=== PATIENT | female | born 1945 | race Hispanic/Latino ===

== ENCOUNTER 2024-06-01 03:38 | Emergency (ER) | payer OTHER ==
--- OUTSIDE RECORDS SUMMARY | 2024-06-01 03:45 | XMS REPORT | Continuity of Care Document ---
Author Name Unknown Address [address] [place] [address] [facility] thconnect Address [address] [facility] [address] [place] [address] Care Team Providers Care Commodities Broker Name Role Phone Francisco HUMPHREY, Navin Primary Care Physic [facility] [phone] MAXIMILIANO BURROWS Attending Clinician Unavailable MAXIMILIANO BURROWS Attending Clinician Unavailable Maximiliano Burrows MD Attending Clinician [phone] Pob, [facility] Main Attending Clinician UnavailAnna Hayden MD Attending Clinician [phone] ANNA LYONS Attending Clinician Unavailabl e Doctor Unassigned, Ethan Attending Clinician U DEEPA Burgos Attending Clinician UnavailDeepa Humphries MD Attending Clinician [phone] Pob, [facility] Main Attending Clinician Unavailabl e Unknown, Attending Attending Clinician Unavailab LOS Jolly S Attending Clinician Unavailable Simon JOVEL Los S Attending Clinician [phone] SERGEI SMITH Attending Clinician Unavail able Nurse, Adc Pob Immunization Attending Clinician Unavailable Sergei Smith DO Attending Clinician [phone] Only, Ang Db Test Attending Clinician UnavailGayle Clemens Attending Clinician [phone] GAYLE SAUER Attending Clinician Unavailable [facility] Attending Clinician Unavailable PRIYA LOVELACE Attending Clinician Unavailab QUINCY Villalobos Attending Clinician Unavaila DANISH Vasquez Attending Clinician Unavailable DANISH URRUTIA Attending Clinician Unavailable Danish Urrutia DO Attending Clinician Ajibade_O_AH Attending Clinician Unavailable Ayesha Armenta RN Attending Clinician Selma Caldwell Attending Clinician [phone] Kimmie Braun MD Attending Clinician Selma KERN Attending Clinician Unavailable JAMES ZHONG Attending Clinician Unavailable [facility]_J_AH Attending Clinician Unavailable MAXIMILIANO BURROWS Admitting Clinician Unavailable Miller_S_AH Admitting Clinician Unavailable Ajibade_O_AH Admitting Clinician Unavailable Kimmie Braun MD Admitting Clinician [phone] [facility]_J_AH Admitting Clinician Unavailable Payers Payer Name Policy Type Policy Number Effective Date Expirati on Date Source [employer] [place] PREMIUM H[place] [id number] 2019 00:00:00 [employer] [place]MEDICARE REPLACEMENT/ADVANT AGE - HMO) [id number] 2019 00:00:00 Problems Condition Name Condition Details Condition Category Status Onset Date Resolution Date Last Treatment Date Treating Clinician Comments Source Nutrition deficiency due to insufficie nt food Nutrition deficiency due to insufficie nt food Disease Active 07-11 00:00: 00 [facility] Mass of left breast, unspecifie d quadrant Mass of left breast, unspecifie d quadrant Disease Active 2022-0618 00:00: 00 [facility] Palpitatio ns Palpitatio ns Disease Active 10-09 00:00: 00 [facility] 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 Disease Active 10-09 00:00: 00 [facility] Cigarette nicotine dependence without complicati on Cigarette nicotine dependence without complicati on Disease Active 10-09 00:00: 00 [facility] Dyslipidem ia Dyslipidem ia Disease Active 10-09 00:00: 00 [facility] CAPONE (dyspnea on exertion) CAPONE (dyspnea on exertion) Disease Active 10-09 00:00: 00 [facility] Cigarette nicotine dependence without complicati on Cigarette nicotine dependence without complicati on Disease Active 10-09 00:00: 00 [facility] Tobacco dependence syndrome Tobacco Dependence Syndrome Problem Active 10-08 00:00: 00 [facility] Cigarette smoker Cigarette Smoker Problem Active 10-08 00:00: 00 [facility] COPD exacerbati on COPD exacerbati on Disease Active 10-08 00:00: 00 [facility] Seasonal allergy Seasonal Allergy Problem Active 10-02 00:00: 00 [facility] Severe protein-ca guanako malnutriti on (Gonzales: less than 60% of standard weight) Severe Protein-ca guanako Malnutriti on (Gonzales: Less than 60% of Standard Weight) Problem Active 2019-06 00:00: 00 [facility] Chronic obstructiv e lung disease Chronic Obstructiv e Lung Disease Problem Active 2019-06 00:00: 00 [facility] Atrial fibrillati on Atrial Fibrillati on Problem Active 2019-06 00:00: 00 [facility] Alcohol intake above recommende d sensible limits Alcohol Intake above Recommende d Sensible Limits Problem Active 03-07 00:00: 00 [facility] Nicotine dependence Nicotine Dependence Problem Active 03-07 00:00: 00 [facility] Hyperlipid emia Hyperlipid emia Problem Active 03-02 00:00: 00 [facility] Cirrhosis of liver Cirrhosis of Liver Problem Active 03-02 00:00: 00 [facility] Allergies, Adverse Reactions, Alerts Allergy Name Allergy Type Status Severity Reaction(s) Onset Date Inactive Date Treating Clinician Comments Source codeine Propensi ty to adverse reaction to drug Active 10-05 00:00: 00 Sandeep Lucio CODEINE DRUG INGREDI Active Hiv 3 00:00: 00 [facility] Hilda Mosquera ty to adverse reaction s Active Hives 2017-0 3-31 00:00: 00 [facility] Social History Social Habit Start Date Stop Date Quantity Comments Source History of tobacco use Cigarette Smoker [facility] to SARS-CoV-2 (event) Not sure [facility] Cigarettes smoked current (pack per day) - Reported 2024-02-16 00:00:00 2024-02-16 00:00:00 [facility] Tobacco use and exposure 2024-02-16 00:00:00 2024-02-16 00:00:00 Smokeless tobacco non-user [facility] Cigarette pack-years 2024-02-16 00:00:00 2024-02-16 00:00:00 [facility] Alcoholic beverage intake 2024-02-16 00:00:00 2024-02-16 00:00:00 Lifetime non-drinker (finding) [facility] Alcohol intake 2023-08-18 00:00:00 2023-08-18 00:00:00 Lifetime non-drinker (finding) [facility] History of Social function 2023-07-11 00:00:00 2023-07-11 00:00:00 [facility] Alcohol Comment 2023-07-11 00:00:00 2023-07-11 00:00:00 quit 2019 [facility] Sex assigned at 1945 00:00:00 1945 00:00:00 [facility] Smoking Status Start Date Stop Date Source Light Tobacco Smoker [facility] Smokes tobacco daily 2024-02-16 00:00:00 [facility] Medications Ordered Medication Name Filled Medication Name Start Date Stop Date Current Medication? Ordering Clinician Indication Dosage Frequency Signature (SIG) Comments Components Source simvastatin 40 mg tablet 2023-06 0-16 00:00: 00 Yes mg Sandeep Lucio simvastatin 40 mg tablet 01-13 00:00: 00 Yes mg Sandeep Ruma Lucio buspirone 10 mg tablet 01-13 00:00: 00 Yes mg Sandeep Lucio Advair Diskus 250 mcg-50 mcg/dose powder for inhalation 2024-0 7-17 00:00: 00 Yes mcg/dos e Sandeep Lucio simvastatin 40 mg tablet 7-12 00:00: 00 Yes mg Sandeep Lucio simvastatin 40 mg tablet 7-11 00:00: 00 Yes mg Sandeep Lucio anastrozole 1 mg tablet 6-10 00:00: 00 Yes 1mg Take 1 tablet by mouth every morning [facility] ONDANSETRON ODT 4 MG 4-09 00:00: 00 Yes 4 Sandeep Lucio TAKE ONE TABLET BY MOUTH AT 5PM AND 10PM THE NIGHT BEFOR EACH CHEMO [place] 4-09 00:00: 00 Yes 4 Sandeep Lucio AMOXICILLIN 500 MG CAPSULE 3-20 00:00: 00 Yes Sandeep Lucio anastrozole 1 mg tablet 3-12 00:00: 00 Yes mg Sandeep Lucio TAKE 1 TABLET BY MOUTH DAILY -12 00:00: 00 Yes Sandeep Lucio simvastatin 40 mg tablet 07-29 14:11: 08 Yes 40mg Take 1 tablet by mouth at bedtime. [facility] multivit with calcium,iro n,min (MULTIPLE VITAMIN, WOMENS ORAL) 07-29 14:11: 08 Yes Take by mouth. [facility] polyethylen e glycol 3350 powder 17 g 07-12 15:00: 00 Yes 17g 17 g, Oral, DAILY, First dose on 07/12/23 at 0900, Until Discontinu ed, Routine [facility] enoxaparin (LOVENOX) injection 40 mg 07-12 15:00: 00 Yes 40mg 40 mg, Subcutaneo us, DAILY, First dose on 07/12/23 at 0900, Until Discontinu ed, Routine [facility] simvastatin 40 mg tablet 07-12 13:23: 43 Yes 40mg Take 1 tablet by mouth at bedtime. [facility] multivit with calcium,iro n,min (MULTIPLE VITAMIN, WOMENS ORAL) 07-12 13:23: 43 Yes Take by mouth. [facility] atorvastati n (LIPITOR) tablet 20 mg 07-12 03:00: 00 Yes 20mg 20 mg, Oral, QHS, First dose on Fri07/11/23 at 2100, Until Discontinu ed [facility] budesonide- formoteroL (SYMBICORT) 160-4.5 mcg/actuati on inhaler 2 Puff 07-12 02:00: 00 Yes 2{puff} 2 Puff, Inhalation , BID, First dose on Fri07/11/23 at 2000, Until Discontinu ed [facility] CELECOXIB 100 MG CAPSULE 07-12 00:00: 00 Yes Sandeep Lucio TAKE 1 TABLET BY MOUTH EVERY 6 HOURS FOR UP TO 7 DAYS NEEDED FOR MODERATE PAIN OR ACUTE PAIN 07-12 00:00: 00 Yes Sandeep Lucio acetaminoph en 500 mg tablet 07-12 00:00: 00 07-27 05:59 :00 No [id number] 1000mg Take 2 tablets by mouth every 8 (eight) hours for 14 days. [facility] celecoxib (CELEBREX) 100 mg capsule 07-12 00:00: 00 07-27 05:59 :00 No [id number] 100mg Take 1 capsule by mouth in the morning and 1 capsule in the evening. Take with meals. Do all this for 14 days. [facility] traMADoL 50 mg tablet 07-12 00:00: 00 07-20 05:59 :00 No [id number] 50mg Take 1 tablet by mouth every 6 (six) hours as needed for Pain (scale 4-6) for up to 7 days. Indication s: acute pain [facility] gabapentin (NEURONTIN) capsule 300 mg 07-11 20:00: 00 Yes 300mg 300 mg, Oral, TID, First dose on Fri07/11/23 at 1400, Until Discontinu ed, LOLA [facility] acetaminoph en (TYLENOL) tablet 1,000 mg 07-11 20:00: 00 Yes 1000mg 1,000 mg, Oral, TID, First dose on Fri07/11/23 at 1400, Until Discontinu ed, Routine [facility] ondansetron (ZOFRAN (PF)) injection 4 mg 07-11 19:50: 18 Yes 4mg 4 mg, Slow IV Push, Q6HPRN, Starting on Fri07/11/23 at 1350, Until Discontinu ed, Routine, Nausea and Vomiting (N/V) [facility] morpHINE (2 mg/mL) injection 2 mg 07-11 19:50: 11 Yes 2mg 2 mg, Slow IV Push, Q2HPRN, Starting on Fri07/11/23 at 1350, Until Discontinu ed, Routine, Pain (scale 7-10), Pain unrelieved by scheduled analgesics [facility] traMADoL (ULTRAM) tablet 50 mg 07-11 19:49: 50 Yes 50mg 50 mg, Oral, Q6HPRN, Starting on Fri07/11/23 at 1349, Until Discontinu ed, Routine, Pain (scale 4-6) [facility] bupivacaine (preserv free) 0.5% (SENSORCAIN E MPF) 30 mL, NaCl 0.9% (NS) 30 mL 07-11 17:19: 00 07-11 20:03 :54 No PRN, Starting on Fri07/11/23 at 1119, Intra-op [facility] water for irrigation irrigation solution 07-11 16:56: 00 07-11 20:03 :54 No PRN, Starting on Fri07/11/23 at 1056, Until Fri07/11/23 at 1403, Routine, Intra-op [facility] Tc 99m-mono. sulfur colloid injection 1.1 millicurie 07-11 16:15: 00 07-11 16:10 :00 No [id number] 1.1mCi 1.1 millicurie , Intraderma l, ONCE, 1 dose, On Fri07/11/23 at 1015, Routine [facility] ipratropium -albuteroL (DUONEB) 0.5 mg-3 mg(2.5 mg base)/3 mL nebulizer solution 1.5 mL 07-11 15:34: 05 07-11 15:38 :00 No 1.5mL 1.5 mL, Inhalation , O.R. HOLDING ONCE, 1 dose, Starting on Fri07/11/23 at 0934, Until Fri07/11/23 at 0938, Routine, Wheezing, DSU Pre-op [facility] simvastatin 40 mg tablet 07-11 14:46: 57 Yes 40mg Take 1 tablet by mouth at bedtime. [facility] multivit with calcium,iro n,min (MULTIPLE VITAMIN, WOMENS ORAL) 07-11 14:46: 57 Yes Take by mouth. [facility] lactated ringers IV infusion 1,000 mL 07-11 14:15: 00 07-11 14:18 :00 No 1000mL at 42 mL/hr, 1,000 mL, IV Infusion, ONCE, 1 dose, On Fri07/11/23 at 0815, Routine, DSU Pre-op [facility] TAKE 1 TABLET TWICE DAILY. 07-08 00:00: 00 10-09 00:00 :00 No 500 Sandeep Lucio buspirone 10 mg tablet 07-02 00:00: 00 Yes mg Sandeep Ruma Naveed simvastatin 40 mg tablet 2022-06 11:49: 03 Yes 40mg Take 1 tablet by mouth at bedtime. [facility] multivit with calcium,iro n,min (MULTIPLE VITAMIN, WOMENS ORAL) 2022-06 11:49: 03 Yes Take by mouth. [facility] Advair Diskus 250 mcg-50 mcg/dose powder for inhalation 2022-06 00:00: 00 Yes mcg/dos e Sandeep Ruma Naveed simvastatin 40 mg tablet 2022-06 00:00: 00 Yes mg Sandeep Lucio INHALE 1 PUFF BY MOUTH TWICE DAILY 2022-06 00:00: 00 Yes Sandeep Lucio TAKE 1 TABLET BY MOUTH EVERY 6 TO 8 HOURS NEEDED FOR PAIN 2022-06 00:00: 00 Yes Sandeep Lucio TAKE ONE CAPSULE BY MOUTH THREE TIMES DAILY UNTIL FINISHED 2022-06 00:00: 00 Yes Sandeep Lucio multivit with calcium,iro n,min (MULTIPLE VITAMIN, WOMENS ORAL) 2022-06 08:09: 14 Yes Take by mouth. [facility] simvastatin 40 mg tablet 2022-06 08:08: 54 Yes 40mg Take 1 tablet by mouth at bedtime. [facility] TAKE 1 CAPSULE BY MOUTH THREE TIMES DAILY UNTIL ALL TAKEN 2022-06 00:00: 00 Yes Sandeep Lucio IBUPROFEN 800MG 2022-06 00:00: 00 Yes [id number] Sandeep Lucio TAKE 1 TABLET BY MOUTH 1 HOUR BEFORE APPOINTMENT 2022-06 00:00: 00 Yes Sandeep Lucio IBUPROFEN 800MG 2022-06 00:00: 00 Yes Sandeep Lucio AMOXICILLIN 500MG 2022-06 00:00: 00 Yes Sandeep Lucio TAKE 1 TABLET BY MOUTH 1 HOURS BEFORE APPOINTMENT 2022-06 00:00: 00 Yes Sandeep Lucio VARENICLINE 1MG 2022-06 0-09 00:00: 00 Yes Sandeep Lucio ADVAIR DISKU 250/50 INH 9- 00:00: 00 Yes Sandeep Lucio TAKE 1 TABLET DAILY. 02-26 00:00: 00 10-09 00:00 :00 No 40 Sandeep Lucio ADVAIR DISKU 250/50 INH 4-30 00:00: 00 Yes Sandeep Lucio SIMVASTATIN 40MG 4-24 00:00: 00 Yes Sandeep Lucio TAKE 1 TABLET BY MOUTH DAILY - 00:00: 00 Yes Sandeep Lucio TRELEGY 100 ELLIPTA INH 1-18 00:00: 00 Yes Sandeep Lucio ADVAIR DISKU 250/50 INH 1-17 00:00: 00 Yes Sandeep Lucio Dose Unknown 2021-06 0-21 00:00: 00 Yes Sandeep Lucio SIMVASTATIN 40MG 2021-06 0-20 00:00: 00 Yes [id number] Sandeep Lucio INHALE 1 PUFF BY MOUTH TWICE DAILY 2021-06 0-18 00:00: 00 Yes Sandeep Lucio TRELEGY 100 ELLIPTA INH 2021-06 0-04 00:00: 00 Yes Sandeep Lucio TRELEGY 100 ELLIPTA INH 9-02 00:00: 00 Yes Sandeep Lucio TRELEGY 100 ELLIPTA INH 5-23 00:00: 00 Yes Sandeep Lucio TAKE 1 TABLET BY MOUTH EVERY NIGHT AT BEDTIME 5 00:00: 00 Yes Sandeep Lucio alclomethas one 0.05 % cream 1-20 00:00: 00 07-12 00:00 :00 No [id number] Apply to area(s) 2 (two) times daily. [facility] ergocalcife rol, vitamin d2, 1,250 mcg (50,000 unit) capsule 10-17 00:00: 00 10-24 04:59 :00 No [id number] Take 1 capsule by mouth weekly for 6 days. [facility] foLIC acid 1 mg tablet 10-11 00:00: 00 11-11 04:59 :00 No [id number] 1mg Take 1 tablet by mouth daily for 30 days. [facility] multivitami n tablet 10-11 00:00: 00 11-11 04:59 :00 No [id number] 1{tbl} Take 1 tablet by mouth daily for 30 days. [facility] thiamine 100 mg tablet 10-11 00:00: 00 11-11 04:59 :00 No [id number] 100mg Take 1 tablet by mouth daily for 30 days. [facility] nicotine 21 mg/24 hr patch 10-11 00:00: 00 11-09 04:59 :00 No [id number] 1{patch } Apply 1 Patch to area(s) every 24 (twenty-fo ur) hours for 28 days. [facility] predniSONE 20 mg tablet 10-11 00:00: 00 10-17 04:59 :00 No [id number] 40mg Take 2 tablets by mouth daily for 5 days. [facility] simvastatin 40 mg tablet 10-10 19:01: 00 Yes 40mg Take 40 mg by mouth at bedtime. [facility] simvastatin 40 mg tablet 10-10 14:01: 00 Yes 40mg Take 40 mg by mouth at bedtime. [facility] ergocalcife rol (vitamin d2) (CALCIFEROL ) capsule 50,000 Units 10-10 14:00: 00 Yes [id number] 50,000 Units, Oral, QWEEKLY, First dose on Fri10/10/20 at 0900, Until Discontinu ed, Routine [facility] KCL (KLOR-CON M20) tablet 40 mEq 10-10 14:00: 00 Yes 40meq 40 mEq, Oral, DAILY, First dose (after last reorder) on Fri10/10/20 at 0900, Until Discontinu ed, LOLA [facility] oxazepam (SERAX) capsule 15 mg 10-10 11:00: 00 10-11 10:59 :00 No 15mg [Order 1 Start] Name: oxazepam (SERAX) capsule 15 mg Signed Summary: 15 mg, Oral, Q8H, 3 doses, First dose on Fri10/10/20 at 0600, Last dose on Fri10/10/20 at 2200, Routine [Order 1 End] [Order 2 Start] Name: oxazepam (SERAX) capsule 15 mg Signed Summary: 15 mg, Oral, Q12H, 2 doses, First dose on Fri10/11/20 at 0800, Last dose on Fri10/11/20 at 2000, Routine [Order 2 End] [facility] simvastatin (ZOCOR) tablet 40 mg 10-10 02:00: 00 Yes 40mg 40 mg, Oral, QHS, First dose on Fri10/09/20 at 2100, Until Discontinu ed, Routine [facility] azithromyci n 250 mg tablet 10-10 00:00: 00 10-16 04:59 :00 No [id number] 250mg Take 1 tablet by mouth daily for 5 days. Take 500 mg day 1, then 250 mg days 2 to 5. [facility] foLIC acid (FOLATE) tablet 1 mg 10-09 14:00: 00 Yes 1mg 1 mg, Oral, DAILY, First dose on Fri10/09/20 at 0900, Until Discontinu ed, Routine [facility] enoxaparin (LOVENOX) injection 30 mg 10-09 14:00: 00 Yes 30mg 30 mg, Subcutaneo us, DAILY, First dose on Fri10/09/20 at 0900, Until Discontinu ed, Routine [facility] predniSONE (DELTASONE) tablet 50 mg 10-09 14:00: 00 Yes 50mg 50 mg, Oral, DAILY, First dose on Fri10/09/20 at 0900, Until Discontinu ed, Routine [facility] docusate (COLACE) capsule 100 mg 10-09 13:00: 00 Yes 100mg 100 mg, Oral, BID, First dose on Fri10/09/20 at 0800, Until Discontinu ed, Routine [facility] azithromyci n (ZITHROMAX) 500 mg in NaCl 0.9% (NS) 250 mL VIAL-MATE IV piggyback 10-09 10:00: 00 10-14 09:59 :00 No 500mg 500 mg, IV Piggyback, Q24H ABX, 5 doses, First dose on Fri10/09/20 at 0500, Last dose on Fri10/13/20 at 0500, 250 mL
Reas on for Anti-Infec tive: Empiric Therapy for Suspected Infection< br>Empi analy Therapy Site: Respirator y
Durat ion of therapy: 7 days [facility] nicotine (NICODERM) 21 mg/24 hr patch 1 Patch 10-09 09:15: 00 Yes 1{patch } 1 Patch, Topical, Administer over 24 Hours, Q24H, First dose on Fri10/09/20 at 0415, Until Discontinu ed, Routine [facility] KCL (KLOR-CON M20) tablet 40 mEq 10-09 09:00: 00 10-09 10:52 :00 No 40meq 40 mEq, Oral, ONCE, 1 dose, Fri10/09/20 at 0400, LOLA [facility] magnesium oxide (MAG-OX 400) tablet 400 mg 10-09 08:15: 00 Yes 400mg 400 mg, Oral, BID, First dose on Fri10/09/20 at 0315, Until Discontinu ed, Routine [facility] multivitami n tablet 1 tablet 10-09 08:15: 00 Yes 1{tbl} 1 tablet, Oral, DAILY, First dose on Fri10/09/20 at 0315, Until Discontinu ed, Routine [facility] thiamine (VITAMIN B1) tablet 100 mg 10-09 08:15: 00 Yes 100mg 100 mg, Oral, DAILY, First dose on Fri10/09/20 at 0315, Until Discontinu ed, Routine [facility] budesonide (PULMICORT RESPULE) nebulizer solution 0.5 mg 10-09 08:15: 00 Yes .5mg 0.5 mg, Inhalation , BID, First dose on Fri10/09/20 at 0315, Until Discontinu ed, Routine
direct support staff member approving Restricted medication : KIMMIE BRAUN [facility] ipratropium -albuteroL (DUONEB) 0.5 mg-3 mg(2.5 mg base)/3 mL nebulizer solution 3 mL 10-09 08:15: 00 Yes 3mL 3 mL, Inhalation , QID, First dose on Fri10/09/20 at 0315, Until Discontinu ed, Routine [facility] oxazepam (SERAX) capsule 15 mg 10-09 08:03: 20 Yes 15mg 15 mg, Oral, Q4HPRN, Starting Fri10/09/20 at 0303, Until Discontinu ed, Routine, Only while awake for DBP equal to or greater than 100, HR equal to or greater than 100. [facility] ondansetron (ZOFRAN (PF)) injection 4 mg 10-09 08:03: 01 Yes 4mg 4 mg, Slow IV Push, Q6HPRN, Starting 10/09/20 at 0303, Until Discontinu ed, Routine, Nausea and Vomiting (N/V) [facility] methylpredn isolone sod succ (SOLU-MEDRO L) injection 125 mg 10-09 06:00: 00 10-09 05:31 :00 No 125mg 125 mg, Slow IV Push, ONCE, 1 dose, 10/09/20 at 0100, STAT [facility] iohexol (OMNIPAQUE 350 BULK-100 mL) injection 100 mL 10-09 04:30: 00 10-09 04:12 :00 No [id number] 100mL 100 mL, Intravenou s, ONCE, 1 dose, 10/08/20 at 2330, Routine [facility] cyclobenzap rine 5 mg tablet 09-27 00:00: 00 10-09 00:00 :00 No 5mg Take 1 tablet by mouth 3 (three) times daily. [facility] naproxen 250 mg tablet 09-27 00:00: 00 10-09 00:00 :00 No 250mg Take 1 tablet by mouth 2 (two) times daily with meals. [facility] thiamine HCl (vitamin B1) 100 mg tablet Take 1 mg every day by oral route with meals for 30 days. thiamine HCl (vitamin B1) 100 mg tablet Take 1 mg every day by oral route with meals for 30 days. No 1mg Q1D thiamine HCl (vitamin B1) 100 mg tablet Take 1 mg every day by oral route with meals for 30 days. [facility] Immun[facility] Ordered Immunization Name Filled Immunization Name Date Status Comments Source influenza, seasonal vaccine, quadrivalent, adjuvanted, .5mL dose, preservative-free influenza, seasonal vaccine, quadrivalent, adjuvanted, .5mL dose, preservative-free 2024-02-23 00:00:00 Completed Sandeep Lucio Prevnar 20 Prevnar 20 2024-02-23 00:00:00 Scarlett Lucio Influenza, High-Dose, Trivalent, PF (FLUZONE) 2023-06-30 00:00:00 Completed [facility] Influenza, High-Dose, Trivalent, PF (FLUZONE) 2023-06-30 00:00:00 Completed [facility] (Old) Pfizer-BioNTech COVID-19 Vaccine Bivalent Booster 12 years and older (KOLB CAP) (Khoi-sucrose formulation) (Old) Pfizer-BioNTech COVID-19 Vaccine Bivalent Booster 12 years and older (KOLB CAP) (Khoi-sucrose formulation) 2022-04-18 00:00:00 Completed Sandeep Lucio Moderna COVID-19 Vaccine Moderna COVID-19 Vaccine 2021-03-26 00:00:00 Completed Sandeep Ruma Lucio SARS-COV-2 COVID-19 MODERNA VACCINE 2021-03-26 00:00:00 Completed [facility] SARS-COV-2 COVID-19 MODERNA VACCINE 2021-03-26 00:00:00 Completed [facility] SARS-COV-2 COVID-19 MODERNA 12+ YRS VACCINE 2021-03-26 00:00:00 Completed [facility] SARS-COV-2 COVID-19 MODERNA 12+ YRS VACCINE 2021-03-26 00:00:00 Completed [facility] Moderna COVID-19 Vaccine Moderna COVID-19 Vaccine 2020-09-02 00:00:00 Completed Sandeep Lucio SARS-COV-2 COVID-19 MODERNA VACCINE 2020-09-02 00:00:00 Completed [facility] SARS-COV-2 COVID-19 MODERNA VACCINE 2020-09-02 00:00:00 Completed [facility] SARS-COV-2 COVID-19 MODERNA VACCINE 2020-09-02 00:00:00 Completed [facility] SARS-COV-2 COVID-19 MODERNA VACCINE 2020-09-02 00:00:00 Completed [facility] SARS-COV-2 COVID-19 MODERNA VACCINE 2020-09-02 00:00:00 Completed [facility] SARS-COV-2 COVID-19 MODERNA VACCINE 2020-09-02 00:00:00 Completed [facility] SARS-COV-2 COVID-19 MODERNA 12+ YRS VACCINE 2020-09-02 00:00:00 Completed [facility] SARS-COV-2 COVID-19 MODERNA VACCINE 2020-09-02 00:00:00 Completed [facility] SARS-COV-2 COVID-19 MODERNA 12+ YRS VACCINE 2020-09-02 00:00:00 Completed [facility] SARS-COV-2 (COVID-19) vaccine, UNSPECIFIED SARS-COV-2 (COVID-19) vaccine, UNSPECIFIED 2020-08-28 00:00:00 Completed [facility] Moderna COVID-19 Vaccine Moderna COVID-19 Vaccine 2020-08-05 00:00:00 Completed Sandeep Hendrix [facility] SARS-COV-2 COVID-19 MODERNA VACCINE 2020-08-05 00:00:00 Completed [facility] SARS-COV-2 COVID-19 MODERNA VACCINE 2020-08-05 00:00:00 Completed [facility] SARS-COV-2 COVID-19 MODERNA VACCINE 2020-08-05 00:00:00 Completed [facility] SARS-COV-2 COVID-19 MODERNA VACCINE 2020-08-05 00:00:00 Completed [facility] SARS-COV-2 COVID-19 MODERNA VACCINE 2020-08-05 00:00:00 Completed [facility] SARS-COV-2 COVID-19 MODERNA VACCINE 2020-08-05 00:00:00 Completed [facility] SARS-COV-2 COVID-19 MODERNA 12+ YRS VACCINE 2020-08-05 00:00:00 Completed [facility] SARS-COV-2 COVID-19 MODERNA VACCINE 2020-08-05 00:00:00 Completed [facility] SARS-COV-2 COVID-19 MODERNA 12+ YRS VACCINE 2020-08-05 00:00:00 Completed [facility] pneumococcal polysaccharide PPV23 pneumococcal polysaccharide PPV23 2020-04-18 00:00:00 Completed [facility] influenza, injectable, quadrivalent influenza, injectable, quadrivalent 2020-04-18 00:00:00 Completed [facility] influenza, injectable, quadrivalent influenza, injectable, quadrivalent 2017-06-30 00:00:00 Completed [facility] SARS-COV-2 COVID-19 MODERNA 12+ YRS VACCINE Unknown Completed [facility] SARS-COV-2 COVID-19 MODERNA 12+ YRS VACCINE Unknown Completed [facility] SARS-COV-2 COVID-19 MODERNA 12+ YRS VACCINE Unknown Completed [facility] SARS-COV-2 COVID-19 MODERNA 12+ YRS VACCINE Unknown Completed [facility] SARS-COV-2 COVID-19 MODERNA 12+ YRS VACCINE Unknown Completed [facility] SARS-COV-2 COVID-19 MODERNA 12+ YRS VACCINE Unknown Completed [facility] SARS-COV-2 COVID-19 MODERNA 12+ YRS VACCINE Unknown Completed [facility] SARS-COV-2 COVID-19 MODERNA 12+ YRS VACCINE Unknown Completed [facility] SARS-COV-2 COVID-19 MODERNA 12+ YRS VACCINE Unknown Completed [facility] SARS-COV-2 COVID-19 MODERNA 12+ YRS VACCINE Unknown Completed [facility] SARS-COV-2 COVID-19 MODERNA 12+ YRS VACCINE Unknown Completed [facility] SARS-COV-2 COVID-19 MODERNA 12+ YRS VACCINE Unknown Completed [facility] SARS-COV-2 COVID-19 MODERNA 12+ YRS VACCINE Unknown Completed [facility] SARS-COV-2 COVID-19 MODERNA 12+ YRS VACCINE Unknown Completed [facility] SARS-COV-2 COVID-19 MODERNA 12+ YRS VACCINE Unknown Completed [facility] SARS-COV-2 COVID-19 MODERNA 12+ YRS VACCINE Unknown Completed [facility] SARS-COV-2 COVID-19 MODERNA 12+ YRS VACCINE Unknown Completed [facility] Influenza High Dose Unknown Completed [facility] SARS-COV-2 COVID-19 MODERNA 12+ YRS VACCINE Unknown Completed [facility] Influenza High Dose Unknown Completed [facility] SARS-COV-2 COVID-19 MODERNA 12+ YRS VACCINE Unknown Completed [facility] Influenza High Dose Unknown Completed [facility] SARS-COV-2 COVID-19 MODERNA 12+ YRS VACCINE Unknown Completed [facility] Influenza High Dose Unknown Completed [facility] Influenza High Dose Unknown Completed [facility] SARS-COV-2 COVID-19 MODERNA 12+ YRS VACCINE Unknown Completed [facility] SARS-COV-2 COVID-19 MODERNA 12+ YRS VACCINE Unknown Completed [facility] Influenza High Dose Unknown Completed [facility] Influenza High Dose Unknown Completed [facility] SARS-COV-2 COVID-19 MODERNA 12+ YRS VACCINE Unknown Completed [facility] SARS-COV-2 COVID-19 MODERNA 12+ YRS VACCINE Unknown Completed [facility] Influenza High Dose Unknown Completed [facility] SARS-COV-2 COVID-19 MODERNA 12+ YRS VACCINE Unknown Completed [facility] Influenza High Dose Unknown Completed [facility] SARS-COV-2 COVID-19 MODERNA 12+ YRS VACCINE Unknown Completed [facility] Influenza High Dose Unknown Completed [facility] SARS-COV-2 COVID-19 MODERNA 12+ YRS VACCINE Unknown Completed [facility] Influenza High Dose Unknown Completed [facility] Vital Signs Vital Name Observation Time Observation Value Comments S ource Systolic blood pressure 2024-02-16 16:01:00 146 mm[Hg] [facility] Diastolic blood pressure 2024-02-16 16:01:00 64 mm[Hg] [facility] Heart rate 2024-02-16 16:00:00 75 /min [facility] Body temperature 2024-02-16 16:00:00 36.72 Juanita [facility] Body height 2024-02-16 16:00:00 149.9 cm [facility] Body weight 2024-02-16 16:00:00 34.473 kg [facility] BMI 2024-02-16 16:00:00 15.35 kg/m2 [facility] Oxygen saturation in Arterial blood by Pulse oximetry 2024-02-16 16:00:00 95 /min [facility] Systolic blood pressure 2023-08-18 17:36:00 149 mm[Hg] [facility] Diastolic blood pressure 2023-08-18 17:36:00 77 mm[Hg] [facility] Heart rate 2023-08-18 17:35:00 87 /min [facility] Respiratory rate 2023-08-18 17:35:00 16 /min [facility] Body height 2023-08-18 17:35:00 149.9 cm [facility] 2023-08-18 17:35:00 33.294 kg [facility] BMI 2023-08-18 17:35:00 14.83 kg/m2 [facility] Oxygen saturation in Arterial blood by Pulse oximetry 2023-08-18 17:35:00 96 /min [facility] Systolic blood pressure 2023-08-12 21:51:00 126 mm[Hg] [facility] Diastolic blood pressure 2023-08-12 21:51:00 59 mm[Hg] [facility] Heart rate 2023-08-12 21:51:00 96 /min [facility] Respiratory rate 2023-08-12 21:51:00 18 /min [facility] Body height 2023-08-12 21:51:00 149.9 cm [facility] Body weight 2023-08-12 21:51:00 33.113 kg [facility] BMI 2023-08-12 21:51:00 14.74 kg/m2 [facility] Oxygen saturation in Arterial blood by Pulse oximetry 2023-08-12 21:51:00 97 /min [facility] Systolic blood pressure 2023-07-29 20:15:00 135 mm[Hg] [facility] Diastolic blood pressure 2023-07-29 20:15:00 72 mm[Hg] [facility] Heart rate 2023-07-29 20:15:00 96 /min [facility] Oxygen saturation in Arterial blood by Pulse oximetry 2023-07-29 20:15:00 96 /min [facility] Respiratory rate 2023-07-29 20:14:00 16 /min [facility] Body height 2023-07-29 20:14:00 149.9 cm [facility] Body weight 2023-07-29 20:14:00 33.203 kg [facility] BMI 2023-07-29 20:14:00 14.78 kg/m2 [facility] Systolic blood pressure 2023-07-12 18:10:00 126 mm[Hg] [facility] Diastolic blood pressure 2023-07-12 18:10:00 55 mm[Hg] [facility] Heart rate 2023-07-12 18:10:00 76 /min [facility] Body temperature 2023-07-12 18:10:00 36.5 Juanita [facility] Respiratory rate 2023-07-12 18:10:00 18 /min [facility] Oxygen saturation in Arterial blood by Pulse oximetry 2023-07-12 18:10:00 93 /min [facility] Body weight 2023-07-12 09:59:00 35.97 kg [facility] BMI 2023-07-12 09:59:00 16.02 kg/m2 [facility] Body height 2023-07-11 20:48:00 149.9 cm [facility] Body height 2023-07-11 15:16:00 149.9 cm [facility] Body weight 2023-07-11 15:16:00 33.566 kg [facility] BMI 2023-07-11 15:16:00 16.02 kg/m2 [facility] Systolic blood pressure 2023-07-11 14:12:00 148 mm[Hg] [facility] Diastolic blood pressure 2023-07-11 14:12:00 56 mm[Hg] [facility] Heart rate 2023-07-11 14:12:00 97 /min [facility] Body temperature 2023-07-11 14:12:00 36.22 Juanita [facility] Respiratory rate 2023-07-11 14:12:00 19 /min [facility] Oxygen saturation in Arterial blood by Pulse oximetry 2023-07-11 14:12:00 98 /min [facility] Systolic blood pressure 2023-06-16 16:56:00 157 mm[Hg] [facility] Diastolic blood pressure 2023-06-16 16:56:00 79 mm[Hg] [facility] Heart rate 2023-06-16 16:56:00 97 /min [facility] Body temperature 2023-06-16 16:56:00 36.11 Juanita [facility] Respiratory rate 2023-06-16 16:56:00 18 /min [facility] Body height 2023-06-16 16:56:00 149.9 cm [facility] Body weight 2023-06-16 16:56:00 35.381 kg [facility] BMI 2023-06-16 16:56:00 15.75 kg/m2 [facility] Oxygen saturation in Arterial blood by Pulse oximetry 2023-06-16 16:56:00 95 /min [facility] Systolic blood pressure 2023-06-02 14:10:00 157 mm[Hg] [facility] Diastolic blood pressure 2023-06-02 14:10:00 76 mm[Hg] [facility] Heart rate 2023-06-02 14:10:00 79 /min [facility] Oxygen saturation in Arterial blood by Pulse oximetry 2023-06-02 14:10:00 95 /min [facility] Body temperature 2023-06-02 14:08:00 36.5 Juanita [facility] Respiratory rate 2023-06-02 14:08:00 18 /min [facility] Body height 2023-06-02 14:08:00 149.9 cm [facility] Body weight 2023-06-02 14:08:00 35.562 kg [facility] BMI 2023-06-02 14:08:00 15.83 kg/m2 [facility] Systolic blood pressure 2021-07-19 06:29:00 154 mm[Hg] [facility] Diastolic blood pressure 2021-07-19 06:29:00 65 mm[Hg] [facility] Heart rate 2021-07-19 06:29:00 78 /min [facility] Body temperature 2021-07-19 06:29:00 36.61 Juanita [facility] Respiratory rate 2021-07-19 06:29:00 18 /min [facility] Body height 2021-07-19 06:29:00 149.9 cm [facility] Body weight 2021-07-19 06:29:00 39.009 kg [facility] BMI 2021-07-19 06:29:00 17.37 kg/m2 [facility] Oxygen saturation in Arterial blood by Pulse oximetry 2021-07-19 06:29:00 98 /min [facility] Systolic blood pressure 2020-10-12 18:33:00 147 mm[Hg] [facility] Diastolic blood pressure 2020-10-12 18:33:00 74 mm[Hg] [facility] Heart rate 2020-10-12 18:32:00 95 /min [facility] Respiratory rate 2020-10-12 18:32:00 19 /min [facility] Body height 2020-10-12 18:32:00 144.8 cm [facility] Body weight 2020-10-12 18:32:00 32.205 kg [facility] BMI 2020-10-12 18:32:00 15.36 kg/m2 [facility] Oxygen saturation in Arterial blood by Pulse oximetry 2020-10-12 18:32:00 93 /min [facility] Respiratory rate 2020-10-10 16:25:00 18 /min [facility] Oxygen saturation in Arterial blood by Pulse oximetry 2020-10-10 16:25:00 97 /min [facility] Heart rate 2020-10-10 16:19:00 84 /min [facility] Systolic blood pressure 2020-10-10 16:13:00 105 mm[Hg] [facility] Diastolic blood pressure 2020-10-10 16:13:00 56 mm[Hg] [facility] Body temperature 2020-10-10 16:13:00 37.11 Juanita [facility] Body weight 2020-10-10 08:16:00 33.475 [facility] 2020-10-10 08:16:00 15.97 kg/m2 [facility] Body height 2020-10-09 05:46:00 144.8 cm [facility] Height 2020-10-02 00:00:00 59 [in_i] [facility] BMI (Body Mass Index) 2020-10-02 00:00:00 15.1 kg/m2 [facility] Body Weight 2020-10-02 00:00:00 75 [lb_av] [facility] Height 2020-07-06 00:00:00 59 [in_i] [facility] BMI (Body Mass Index) 2020-07-06 00:00:00 14.9 kg/m2 [facility] Body Weight 2020-07-06 00:00:00 74 [lb_av] [facility] Height 2020-05-08 00:00:00 59 [in_i] [facility] BMI (Body Mass Index) 2020-05-08 00:00:00 14.5 kg/m2 [facility] Body Weight 2020-05-08 00:00:00 72 [lb_av] [facility] Height 2020-03-02 00:00:00 59 [in_i] [facility] BMI (Body Mass Index) 2020-03-02 00:00:00 14.5 kg/m2 [facility] Body Weight 2020-03-02 00:00:00 72 [lb_av] [facility] BP Systolic 2024-04-14 13:39:00 130 mm[Hg] Step hen [facility] BP Diastolic 2024-04-14 13:39:00 56 mm[Hg] Evan phen F [facility] Weight Measured 2024-04-14 13:39:00 81.80 pounds Sandeep F [facility] Height Measured 2024-04-14 13:39:00 57.48 inches Sandeep F [facility] Body Temperature 2024-04-14 13:39:00 Sandeep F [facility] Heart Rate 2024-04-14 13:39:00 90.00 /min Raquel en [facility] Respiratory Rate 2024-04-14 13:39:00 Sandeep F [facility] BP Systolic 2024-02-23 14:41:00 133 mm[Hg] Step [facility] BP Diastolic 2024-02-23 14:41:00 62 mm[Hg] Evan phen F [facility] Weight Measured 2024-02-23 14:41:00 78.00 pounds Sandeep F [facility] Height Measured 2024-02-23 14:41:00 57.48 inches Sandeep F [facility] Body Temperature 2024-02-23 14:41:00 97.60 degrees Sandeep F [facility] Heart Rate 2024-02-23 14:41:00 90.00 /min Raquel en [facility] Respiratory Rate 2024-02-23 14:41:00 Sandeep F N[facility] BP Systolic 2024-01-14 11:06:00 151 mm[Hg] Step [facility] BP Diastolic 2024-01-14 11:06:00 69 mm[Hg] Evan phen [facility] Weight Measured 2024-01-14 11:06:00 73.80 pounds Sandeep F [facility] Height Measured 2024-01-14 11:06:00 57.48 inches Sandeep F [facility] Body Temperature 2024-01-14 11:06:00 98.10 degrees Sandeep F [facility] Heart Rate 2024-01-14 11:06:00 92.00 /min Raquel en [facility] Respiratory Rate 2024-01-14 11:06:00 Sandeep F Nave[facility] BP Systolic 2023-10-06 15:32:00 147 mm[Hg] Step [facility] BP Diastolic 2023-10-06 15:32:00 66 mm[Hg] Evan phen [facility] Weight Measured 2023-10-06 15:32:00 71.60 pounds Sandeep F [facility] Height Measured 2023-10-06 15:32:00 57.48 inches Sandeep F [facility] Body Temperature 2023-10-06 15:32:00 97.20 degrees Sandeep F [facility] Heart Rate 2023-10-06 15:32:00 71.00 /min Raquel en F [facility] Respiratory Rate 2023-10-06 15:32:00 Sandeep F Nave[facility] BP Systolic 2023-08-21 13:28:00 167 mm[Hg] Step [facility] BP Diastolic 2023-08-21 13:28:00 73 mm[Hg] Evan phen [facility] Weight Measured 2023-08-21 13:28:00 72.80 pounds Sandeep F [facility] Height Measured 2023-08-21 13:28:00 57.48 inches Sandeep F [facility] Body Temperature 2023-08-21 13:28:00 98.10 degrees Sandeep F N[facility] Heart Rate 2023-08-21 13:28:00 87.00 /min Raquel en F [facility] Respiratory Rate 2023-08-21 13:28:00 25.00 /min Sandeep F [facility] BP Systolic 2023-07-02 13:15:00 133 mm[Hg] Step [facility] BP Diastolic 2023-07-02 13:15:00 74 mm[Hg] Evan phen [facility] Weight Measured 2023-07-02 13:15:00 77.80 pounds Sandeep F [facility] Height Measured 2023-07-02 13:15:00 67.48 inches Asndeep F [facility] Body Temperature 2023-07-02 13:15:00 97.80 degrees Sandeep F [facility] Heart Rate 2023-07-02 13:15:00 91.00 /min Raquel en F [facility] Respiratory Rate 2023-07-02 13:15:00 Sandeep F N[facility] BP Systolic 2023-06-10 15:59:00 132 mm[Hg] Step [facility] BP Diastolic 2023-06-10 15:59:00 75 mm[Hg] Evan phen [facility] Weight Measured 2023-06-10 15:59:00 78.00 pounds Sandeep F [facility] Height Measured 2023-06-10 15:59:00 57.48 inches Sandeep F [facility] Body Temperature 2023-06-10 15:59:00 97.30 degrees Sandeep F [facility] Heart Rate 2023-06-10 15:59:00 84.00 /min Raquel en F [facility] Respiratory Rate 2023-06-10 15:59:00 Sandeep F Nave[facility] BP Systolic 2023-04-23 13:33:00 108 mm[Hg] Step [facility] BP Diastolic 2023-04-23 13:33:00 66 mm[Hg] Evan phen [facility] Weight Measured 2023-04-23 13:33:00 78.20 pounds Sandeep F [facility] Height Measured 2023-04-23 13:33:00 57.48 inches Sandeep F [facility] Body Temperature 2023-04-23 13:33:00 97.90 degrees Sandeep F [facility] Heart Rate 2023-04-23 13:33:00 92.00 /min Raquel en F [facility] Respiratory Rate 2023-04-23 13:33:00 Sandeep F Nave[facility] BP Systolic 2023-04-16 13:58:00 137 mm[Hg] Step [facility] BP Diastolic 2023-04-16 13:58:00 74 mm[Hg] Evan phen [facility] Weight Measured 2023-04-16 13:58:00 79.20 pounds Sandeep F [facility] Height Measured 2023-04-16 13:58:00 57.48 inches Sandeep F [facility] Body Temperature 2023-04-16 13:58:00 97.60 degrees Sandeep F [facility] Heart Rate 2023-04-16 13:58:00 89.00 /min Raquel en [facility] Respiratory Rate 2023-04-16 13:58:00 Sandeep F Naveed BP Systolic 2023-03-04 08:18:00 134 mm[Hg] Step [facility] BP Diastolic 2023-03-04 08:18:00 71 mm[Hg] Evan phen [facility] Weight Measured 2023-03-04 08:18:00 94.40 pounds Sandeep F [facility] Height Measured 2023-03-04 08:18:00 57.48 inches Sandeep F [facility] Body Temperature 2023-03-04 08:18:00 97.40 degrees Sandeep F [facility] Heart Rate 2023-03-04 08:18:00 86.00 /min Raquel en F [facility] Respiratory Rate 2023-03-04 08:18:00 Sandeep F Naveed BP Systolic 2023-02-26 13:31:00 153 mm[Hg] Step hen [facility] BP Diastolic 2023-02-26 13:31:00 63 mm[Hg] Evan phen [facility] Weight Measured 2023-02-26 13:31:00 80.60 pounds Sandeep F [facility] Height Measured 2023-02-26 13:31:00 57.48 inches Sandeep F [facility] Body Temperature 2023-02-26 13:31:00 98.30 degrees Sandeep F [facility] Heart Rate 2023-02-26 13:31:00 80.00 /min Raquel en F [facility] Respiratory Rate 2023-02-26 13:31:00 Sandeep F Naveed BP Systolic 2022-10-21 14:10:00 154 mm[Hg] Step hen [facility] BP Diastolic 2022-10-21 14:10:00 74 mm[Hg] Evan phen F [facility] Weight Measured 2022-10-21 14:10:00 80.40 pounds Sandeep Lucio Height Measured 2022-10-21 14:10:00 57.48 inches Sandeep Lucio Body Temperature 2022-10-21 14:10:00 98.10 degrees Sandeep Lucio Heart Rate 2022-10-21 14:10:00 89.00 /min Raquel en Ruma Lucio Respiratory Rate 2022-10-21 14:10:00 Sandeep Lucio BP Systolic 2022-07-22 13:30:00 134 mm[Hg] Step hen Ruma Lucio BP Diastolic 2022-07-22 13:30:00 72 mm[Hg] Evan Lucio Weight Measured 2022-07-22 13:30:00 81.20 pounds Sandeep Lucio Height Measured 2022-07-22 13:30:00 57.48 inches Sandeep Lucio Body Temperature 2022-07-22 13:30:00 98.20 degrees Sandeep Lucio Heart Rate 2022-07-22 13:30:00 92.00 /min Raquel en Ruma Lucio Respiratory Rate 2022-07-22 13:30:00 Sandeep Lucio Procedures Procedure Date / Time Performed Performing Clinician Source BI GLENN GUIDED CORE BREAST BIOPSY RIGHT 2024-05-07 22:09:00 Maximiliano Burrows [facility] BI ULTRASOUND BREAST COMPLETE RIGHT 2024-04-14 15:58:07 Navin Singh [facility] BI DIAGNOSTIC TOMOSYNTHESIS RIGHT 2024-04-14 15:00:00 Maximiliano Burrows [facility] EXTERNAL PROVIDER RECORDS 2023-09-19 05:01:00 Doctor Unassigned, Ethan [facility] AUTHORIZATION FOR RELEASE OF PHI 2023-08-21 06:01:00 Doctor Unassigned, Ethan [facility] FL TIME OR (NON-REPORTABLE) 2023-07-11 18:15:00 Maximiliano Burrows [facility] FL TIME OR (NON-REPORTABLE) 2023-07-11 18:15:00 Maximiliano Burrows [facility] NM INJECTION SENTINEL NODE 2023-07-11 17:12:37 Maximiliano Burrows [facility] SIMPLE MASTECTOMY 2023-07-11 16:10:00 Maximiliano Burrows [facility] SENTINEL LYMPH NODE MAPPING 2023-07-11 16:10:00 Maximiliano Burrows [facility] BASIC METABOLIC PANEL (NA, K, CL, CO2, GLUCOSE, BUN, CREATININE, CA) 2023-07-09 14:16:00 Maximiliano Burrows [facility] HB ABO GROUPING 2023-07-09 14:16:00 Maximiliano Burrows [facility] BASIC METABOLIC PANEL (NA, K, CL, CO2, GLUCOSE, BUN, CREATININE, CA) 2023-07-09 14:16:00 Maximiliano Burrows [facility] HB ABO GROUPING 2023-07-09 14:16:00 Maximiliano Burrows [facility] INSURANCE CORRESPONDENCE 2023-07-03 06:01:00 Doc tor Unassigned, Ethan [facility] AUTHORIZATION TO RELEASE PHI TO [facility] 2023-06-18 06:01:00 Doctor Unassigned, Ethan [facility] BI ABELINO BASINS BILATERAL 2023-06-17 14:47:42 Maximiliano Burrows [facility] BI US GUIDED CORE BREAST BIOPSY LEFT 2023-06-04 17:08:21 Maximiliano Burrows [facility] BI ULTRASOUND BREAST COMPLETE LEFT 2023-06-04 16:43:36 Maximiliano Burrows [facility] BI DIAGNOSTIC TOMOSYNTHESIS LEFT 2023-06-04 16:17:06 Maximiliano Burrows [facility] AUTHORIZATION TO RELEASE PHI TO [facility] 2023-06-02 06:01:00 Doctor Unassigned, Ethan [facility] AUTHORIZATION TO RELEASE PHI TO [facility] 2023-05-26 06:01:00 Doctor Unassigned, Ethan [facility] REFERRAL- REQUEST/RESPONSE 2023-05-12 06:01:00 Doctor Unassigned, Ethan [facility] [id number] Ekg W/ At Least 12 Leads W/ I r 2023-02-26 00:00:00 Sandeep Lucio [id number] Ekg W/ At Least 12 Leads W/ I r 2022-07-22 00:00:00 Sandeep Lucio NOTICE OF PRIVACY PRACTICES 2021-07-19 06:06:58 Doctor Unassigned, Ethan [facility] CONSENT/REFUSAL FOR DIAGNOSIS AND TREATMENT 2021-07-19 06:06:31 Doctor Unassigned, Ethan [facility] SARS-COV-2 COVID-19 VACCINE,0.5ML,IM (MODERNA) 2021-03-26 15:49:00 Doctor Unassigned, Ethan [facility] ASSIGNMENT OF BENEFITS 2020-10-12 17:45:17 Docto r Unassigned, Ethan [facility] MAGNESIUM 2020-10-10 08:23:00 [facility] 2020-10-10 08:23:00 Quincy Corbin [facility] COMP. METABOLIC PANEL ([id number]) 2020-10-10 08:23:00 Kimmie Braun [facility] CBC WITH DIFF 2020-10-10 08:23:00 Kimmie Braun [facility] N-TERMINAL PRO-BNP 2020-10-10 08:23:00 Quincy Corbin [facility] TRANSTHORACIC ECHO (TTE) COMPLETE 2020-10-09 17:38:00 Kimmie Braun [facility] VITAMIN B12, LEVEL 2020-10-09 09:22:00 Kimmie Braun [facility] LIPID PANEL (58688)(TOTAL CHOLESTEROL, TRIGLYCERIDES, HDL) 2020-10-09 09:22:00 Kimmie Braun [facility] SEDIMENTATION RATE 2020-10-09 09:22:00 Kimmie Braun [facility] VITAMIN D, 25-OH 2020-10-09 09:22:00 [facility]ACT[facility] AC[facility] WHOLE BLOOD 2020-10-09 09:22:00 Anila Braunn [facility] PROCALCITONIN 2020-10-09 09:22:00 Kimmie Braun [facility] HB ECG ROUTINE & RHYTHM STRIP 2020-10-09 08:53:09 Kimmie Braun [facility] CT CHEST PULMONARY ANGIOGRAM 2020-10-09 04:17:21 Selma Kern [facility] BLOOD CULTURE SCREEN 2020-10-09 04:09:00 Selma Kern [facility] URINALYSIS 2020-10-09 04:09:00 Selma Kern [facility] PROTHROMBIN TIME / INR 2020-10-09 04:01:00 Selma Kern [facility] ACTIVATED PARTIAL THRMPLAS BRE 2020-10-09 04:01:00 Selma Kern [facility] HB CREATININE BLOOD 2020-10-09 04:00:00 Selma Kern [facility] ADC,CLC OR LCC ONLY - INFLUENZA A & B DIRECT ANTIGEN 2020-10-09 03:58:00 Selma Kern [facility] PHOSPHORUS 2020-10-09 03:57:00 [facility] 2020-10-09 03:57:00 Kimmie Braun [facility] MAGNESIUM 2020-10-09 03:57:00 Selma Kern [facility] TROPONIN I 2020-10-09 03:57:00 Selma Kern [facility] THYROID STIMULATING HORMONE 2020-10-09 03:57:00 Kimmie Braun [facility] COMP. METABOLIC PANEL (01908) 2020-10-09 03:57:00 Selma Kern [facility] ETHANOL 2020-10-09 03:57:00 Selma Kern [facility] CBC WITH DIFF 2020-10-09 03:57:00 Selma Kern [facility] GLYCOSYLATED HEMOGLOBIN (A1C) 2020-10-09 03:57:00 Kimmie Braun [facility] N-TERMINAL PRO-BNP 2020-10-09 03:57:00 Selma Kern [facility] AC PANEL 21 + LACTIC ACID 2020-10-09 03:57:00 Selma Kern [facility] COVID-19 (ID NOW RAPID TESTING) 2020-10-09 03:57:00 Selma Kern [facility] HB ECG ROUTINE & RHYTHM STRIP 2020-10-09 03:53:13 Selma Kern [facility] XR CHEST 1 VW 2020-10-09 03:51:29 Selma Kern [facility] CONSENT/REFUSAL FOR DIAGNOSIS AND TREATMENT 2020-10-09 03:29:53 Doctor Unassigned, Ethan [facility] Screening for Osteoporosis [facility] Screening Mammography [facility] Colonoscopy [facility] Encounters Start Date/Time End Date/Time Encounter Type Admission Type Attending Clinicians Care Facility Care Department Encounter ID Source 2024-08-16 10:00:00 2024-08-16 10:00:00 Outpatient MAXIMILIANO TAYLOR RAJ [facility] [id number] [facility] 2024-05-07 14:23:11 2024-05-07 23:59:00 Outpatient R MAXIMILIANO BURROWS [facility] [id number] [facility] 2024-05-07 14:23:11 2024-05-07 23:59:00 Hospital Encounter Maximiliano Burrows [facility] 1.840.114 350.1.13.10 4.2.7.2.686 [id number] [facility] 2024-05-07 08:45:00 2024-05-07 09:00:00 Solution Strategist Visit Miguel Angel, Adc Lab Main Anna Lyons, Adc Lab Main [facility] 1..840.114 350.1.13.10 4.2.7.2.686 [id number] [facility] 2024-04-27 00:00:00 2024-04-29 15:01:39 Telephone Maximiliano Burrows [facility] 1..840.114 350.1.13.10 4.2.7.2.686 [id number] [facility] 2024-04-23 09:30:00 2024-04-23 09:45:00 Solution Strategist Visit Pob, Adc Lab Main Anna Lyons Pob, Adc Lab Main [facility] 1.2.840.114 350.1.13.10 4.2.7.2.686 [id number] [facility] 2024-04-23 09:30:00 2024-04-23 09:30:00 Outpatient R ANNA LYONS [facility] [id number] [facility] 2024-04-14 10:15:00 2024-04-14 23:59:00 Hospital Encounter Maximiliano Burrows [facility] 1..840.114 350.1.13.10 4.2.7.2.686 [id number] [facility] 2024-04-14 13:33:48 2024-04-14 13:33:48 Outpatient SFA SFA [id number] Sandeep Lucio 2024-04-14 08:38:32 2024-04-14 10:14:00 Outpatient R MAXIMILIANO BURROWS [facility] [id number] [facility] 2024-04-14 08:38:32 2024-04-14 10:14:00 Hospital Encounter Maximiliano Burrows [facility] ..840.114 350.1.13.10 4.2.7.2.686 [id number] [facility] 2024-04-14 00:00:00 2024-04-14 00:00:00 Outpatient Visit ALBERT [id number] Sandeep Lucio 2024-04-01 00:00:00 2024-04-02 08:01:22 Telephone Maximiliano Burrows [facility] 1.2.840.114 350.1.13.10 4.2.7.2.686 [id number] [facility] 2024-04-01 11:27:53 2024-04-01 11:27:53 Outpatient SFA [facility] [id number] Sandeep Lucio 2024-02-26 08:05:05 2024-02-26 08:05:05 Outpatient SFA [facility] [id number] Sandeep Lucio 2024-02-23 14:30:56 2024-02-23 14:30:56 Outpatient SFA [facility] [id number] Sandeep Lucio 2024-02-23 00:00:00 2024-02-23 00:00:00 Outpatient Visit [facility] [id number] Sandeep Hendrix Naveed 2024-02-18 00:00:00 2024-02-18 15:07:59 Telephone Maximiliano Burrows [facility] 1.2.840.114 350.1.13.10 4.2.7.2.686 [id number] [facility] 2024-02-16 11:00:00 2024-02-16 11:22:51 Outpatient R MAXIMILIANO BURROWS [facility] [id number] [facility] 2024-02-16 11:00:00 2024-02-16 11:22:51 Office Visit Maximiliano Burrows [facility] 1.2.840.114 350.1.13.10 4.2.7.2.686 [id number] [facility] 2024-01-14 10:33:50 2024-01-14 10:33:50 Outpatient SFA [facility] [id number] Sandeep Lucio 2024-01-14 00:00:00 2024-01-14 00:00:00 Outpatient Visit SFA [id number] Sandeep Lucio 2023-10-06 15:31:01 2023-10-06 15:31:01 Outpatient SFA [facility] [id number] Sandeep Lucio 2023-10-06 00:00:00 2023-10-06 00:00:00 Outpatient Visit [facility] [id number] Sandeep Lucio 2023-09-19 00:00:00 2023-09-19 00:00:00 Orders Only Doctor Unassigned, Ethan [facility] 1.2840.114 350.1.13.10 4.2.7.2.686 [id number] [facility] 2023-08-21 13:13:48 2023-08-21 13:13:48 Outpatient [facility] [id number] Sandeep Hendrix Naveed 2023-08-21 00:00:00 2023-08-21 00:00:00 Orders Only Doctor Unassigned, Ethan [facility] 1.840.114 350.1.13.10 4.2.7.2.686 [id number] [facility] 2023-08-18 11:45:00 2023-08-18 12:04:59 Outpatient MAXIMILIANO TAYLOR RAJ [facility] [id number] [facility] 2023-08-18 11:45:00 2023-08-18 12:04:59 Office Visit Maximiliano Burrows [facility] 1..840.114 350.1.13.10 4.2.7.2.686 [id number] [facility] 2023-08-12 16:30:00 2023-08-12 16:30:00 Office Visit Deepa Daily [facility] 1..840.114 350.1.13.10 4.2.7.2.686 [id number] [facility] 2023-08-12 16:30:00 2023-08-12 16:18:39 Outpatient R ARIANNA DEEPA [facility] [id number] [facility] 2023-07-29 14:15:00 2023-07-29 14:41:40 Outpatient R CATHERINESAUNDRAFRANCISCO DEEPA [facility] [id number] [facility] 2023-07-29 14:15:00 2023-07-29 14:41:40 Office Visit Darrylfrancisco Deepa [facility] 1.2.840.114 350.1.13.10 4.2.7.2.686 [id number] [facility] 2023-07-24 00:00:00 2023-07-24 00:00:00 Telephone Maximiliano Burrows [facility] 1.2.840.114 350.1.13.10 4.2.7.2.686 [id number] [facility] 2023-07-11 08:10:00 2023-07-12 13:21:00 Outpatient R MAXIMILIANO BURROWS [facility] [id number] [facility] 2023-07-11 08:10:00 2023-07-12 13:21:00 Hospital Encounter Maximiliano Burrows [facility] 1.2.840.114 350.1.13.10 4.2.7.2.686 [id number] [facility] 2023-07-11 09:33:00 2023-07-11 13:35:00 Surgery Maximiliano Burrows [facility] 1.2.840.114 350.1.13.10 4.2.7.2.686 [id number] [facility] 2023-07-11 07:30:00 2023-07-11 08:09:00 Hospital Encounter Maximiliano Burrows [facility] 1.2.840.114 350.1.13.10 4.2.7.2.686 [id number] [facility] 2023-07-10 00:00:00 2023-07-10 00:00:00 Telephone Maximiliano Burrows [facility] 1.2.840.114 350.1.13.10 4.2.7.2.686 [id number] [facility] 2023-07-09 08:00:00 2023-07-09 08:15:00 Solution Strategist Visit Pob, Adc Lab Main Unknown, Attending Desitenisha [facility] 1.2840.114 350.1.13.10 4.2.7.2.686 [id number] [facility] 2023-07-09 08:00:00 2023-07-09 08:00:00 Outpatient R MAXIMILIANO BURROWS [facility] [id number] [facility] 2023-07-03 00:00:00 2023-07-03 00:00:00 Orders Only Doctor Unassigned, Ethan [facility] 1.20.114 350.1.13.10 4.2.7.2.686 [id number] [facility] 2023-07-02 13:15:06 2023-07-02 13:15:06 Outpatient [facility] [id number] Sandeep Lucio 2023-06-18 00:00:00 2023-06-18 00:00:00 Orders Only Doctor Unassigned, Ethan [facility] 1.2840.114 350.1.13.10 4.2.7.2.686 [id number] [facility] 2023-06-17 07:37:35 2023-06-17 23:59:00 Outpatient R MAXIMILIANO BURROWS RAJ [facility] [id number] [facility] 2023-06-17 07:37:35 2023-06-17 23:59:00 Hospital Encounter Maximiliano Burrows [facility] 1.2840.114 350.1.13.10 4.2.7.2.686 [id number] [facility] 2023-06-16 11:30:00 2023-06-16 11:47:39 Outpatient R MAXIMILIANO BURROWS RAJ [facility] [id number] [facility] 2023-06-16 11:30:00 2023-06-16 11:47:39 Office Visit Maximiliano Burrows [facility] 1.2840.114 350.1.13.10 4.2.7.2.686 [id number] [facility] 2023-06-10 15:48:38 2023-06-10 15:48:38 Outpatient [facility] [id number] Sandeep Lucio 2023-06-04 08:45:53 2023-06-04 23:59:00 Hospital Encounter Maximiliano Burrows [facility] 1.2840.114 350.1.13.10 4.2.7.2.686 [id number] [facility] 2023-06-04 08:45:46 2023-06-04 23:59:00 Outpatient R MAXIMILIANO BURROWS RAJ [facility] [id number] [facility] 2023-06-04 08:45:46 2023-06-04 23:59:00 Hospital Encounter Maximiliano Burrows [facility] 1.2840.114 350.1.13.10 4.2.7.2.686 [id number] [facility] 2023-06-04 08:45:23 2023-06-04 23:59:00 Hospital Encounter Maximiliano Burrows [facility] 1.2840.114 350.1.13.10 4.2.7.2.686 [id number] [facility] 2023-06-02 08:15:00 2023-06-02 09:05:39 Outpatient R MAXIMILIANO BURROWS RAJ [facility] [id number] [facility] 2023-06-02 08:15:00 2023-06-02 09:05:39 Office Visit Maximiliano Burrows [facility] 1.2840.114 350.1.13.10 4.2.7.2.686 [id number] [facility] 2023-06-02 00:00:00 2023-06-02 00:00:00 Orders Only Doctor Unassigned, Ethan [facility] 1.2.840.114 350.1.13.10 4.2.7.2.686 [id number] [facility] 2023-05-30 00:00:00 2023-05-30 00:00:00 Telephone Maximiliano Burrows [facility] 1.2840.114 350.1.13.10 4.2.7.2.686 [id number] [facility] 2023-05-26 00:00:00 2023-05-26 00:00:00 Orders Only Doctor Unassigned, Ethan [facility] 1.2840.114 350.1.13.10 4.2.7.2.686 [id number] [facility] 2023-05-19 08:00:00 2023-05-19 08:00:00 Outpatient R MAXIMILIANO BURROWS RAJ [facility] [id number] [facility] 2023-05-19 00:00:00 2023-05-19 00:00:00 Telephone [facility] 1.2.840.114 350.1.13.10 4.2.7.2.686 [id number] [facility] 2023-05-16 00:00:00 2023-05-16 00:00:00 Telephone [facility] 1.2.840.114 350.1.13.10 4.2.7.2.686 [id number] [facility] 2023-05-12 00:00:00 2023-05-12 00:00:00 Orders Only Doctor Unassigned, Ethan [facility] 1.2.840.114 350.1.13.10 4.2.7.2.686 [id number] [facility] 2023 15:39:12 2023 15:39:12 Outpatient SFA SFA [id number] Sandeep Lucio 2023-04-23 13:27:38 2023-04-23 13:27:38 Outpatient SFA SFA [id number] Sandeep Lucio 2023-04-16 13:52:45 2023-04-16 13:52:45 Outpatient SFA SFA [id number] Sandeep Lucio 2023-04-14 15:09:09 2023-04-14 15:09:09 Outpatient SFA SFA [id number] Sandeep Lucio 2023-03-04 08:05:42 2023-03-04 08:05:42 Outpatient SFA SFA [id number] Sandeep Lucio 2023-02-26 13:25:33 2023-02-26 13:25:33 Outpatient SFA SFA [id number] Sandeep Lucio 2022-12-11 09:35:13 2022-12-11 09:35:13 Outpatient SFA SFA [id number] Sandeep Lucio 2022-11-27 15:10:12 2022-11-27 15:10:12 Outpatient SFA [facility] [id number] Sandeep Lucio 2022-11-01 09:17:14 2022-11-01 09:17:14 Outpatient SFA [facility] [id number] Sandeep Lucio 2022-10-30 10:38:39 2022-10-30 10:38:39 Outpatient ALBERT [facility] [id number] Sandeep Lucio 2022-10-22 08:15:28 2022-10-22 08:15:28 Outpatient ALBERT [facility] [id number] Sandeep Lucio 2022-10-21 14:06:22 2022-10-21 14:06:22 Outpatient ALBERT [facility] 24 Sandeep Lucio 2022-07-23 08:09:14 2022-07-23 08:09:14 Outpatient ALBERT [facility] 24 Sandeep Lucio 2022-07-22 13:20:46 2022-07-22 13:20:46 Outpatient ALBERT [facility] 23 Sandeep Lucio 2022-04-24 14:35:53 2022-04-24 14:35:53 Outpatient ALBERT [facility] 26 Sandeep Lucio 2021-07-19 00:32:00 2021-07-19 04:13:00 Emergency X [place] [facility] [id number] [facility] 2021-07-19 00:32:00 2021-07-19 04:13:00 Emergency [place] S [facility] 07.01.840.114 350.1.13.10 4.2.7.2.686 [id number] [facility] 2021-03-26 11:10:00 2021-03-26 11:10:00 Outpatient SERGEI CROOK [facility] [id number] [facility] 2021-03-26 10:47:23 2021-03-26 10:47:35 Imm/Inj Visit Nurse, Adc Pob Immunizatio Sergei Leigh [facility] ..840.114 350.1.13.10 4.2.7.2.686 [id number] [facility] 2021-03-22 09:41:31 2021-03-22 09:56:31 Laboratory Only Only, Ang Db Test Gayle Sauer [facility] 1..840.114 350.1.13.10 4.2.7.2.686 [id number] [facility] 2021-03-22 09:45:00 2021-03-22 09:45:00 Outpatient R GAYLE SAUER [facility] [id number] [facility] 2021-01-07 12:25:00 2021-01-07 12:25:00 Outpatient Miller_S_AH VFP VFP [id number] [facility] e 2020-12-25 00:00:00 2020-12-25 00:00:00 Outpatient R RADU [facility] [id number] [facility] 2020-12-07 02:25:00 2020-12-07 02:25:00 Outpatient Miller_S_AH VFP VFP [id number] [facility] 2020-11-24 00:00:00 2020-11-24 00:00:00 Outpatient Gareth LOVELACE PRIYA [facility] [id number] [facility] 2020-11-06 09:00:00 2020-11-06 09:00:00 Outpatient R QUINCY CORBIN [facility] [id number] [facility] 2020-10-12 13:30:00 2020-10-12 13:30:00 Outpatient DANISH RIVERA SHIWAN [facility] [id number] [facility] 2020-10-12 12:57:00 2020-10-12 13:27:00 Office Visit Danish Urrutia [facility] Building ..840.114 350.1.13.10 4.2.7.2.686 [id number] [facility] 2020-10-12 00:00:00 2020-10-12 00:00:00 Orders Only Doctor Unassigned, Ethan [facility] 1.2.840.114 350.1.13.10 4.2.7.2.686 [id number] [facility] 2020-10-11 06:11:00 2020-10-11 06:11:00 Outpatient Ajibade_O_A H VFP VFP [id number] [facility] 2020-10-11 00:00:00 2020-10-11 00:00:00 Transition of Care Ayesha Armenta Royce Mcgrath 1.2.840.114 350.1.13.10 4.2.7.2.686 [id number] [facility] 2020-10-08 22:34:00 2020-10-10 13:58:00 Hospital Encounter Selma Kern Adnan [facility] 1.2.840.114 350.1.13.10 4.2.7.2.686 [id number] [facility] 2020-10-09 09:39:00 2020-10-09 09:39:00 Outpatient Ajibade_O_A H VFP VFP [id number] [facility] 2020-10-08 22:34:00 2020-10-08 22:34:00 Emergency X Selma [facility] ERT [id number] [facility] 2020-10-02 01:03:00 2020-10-02 01:03:00 Outpatient Ajibade_O_A H VFP VFP [id number] [facility] 2020-10-02 00:00:00 2020-10-02 00:00:00 Maxine Saenz, T RAIL TURNER: [address], [address], [place] [address] , Ph. VFP [place] - [facility] - [email or web address]_ [place] [facility] [id number] [facility] 2020-08-06 10:34:00 2020-08-06 10:34:00 Outpatient Ajibade_O_A H VFP VFP [id number] [facility] 2020-08-05 16:10:00 2020-08-05 16:10:00 Outpatient JAMES MORROW [facility] [id number] [facility] 2020-07-11 05:09:00 2020-07-11 05:09:00 Outpatient Ajibade_O_A H VFP VFP [id number] [facility] 2020-07-06 10:12:00 2020-07-06 10:12:00 Outpatient Ajibade_O_A H VFP VFP [id number] [facility] 2020-07-06 00:00:00 2020-07-06 00:00:00 Maxine Saenz, T RAIL TURNER: [address] [facility], [address], [place] [address] , Ph. VFP [place] - [facility] - [email or web address]_ [place] [facility] [id number] [facility] 2020-05-11 07:43:00 2020-05-11 07:43:00 Outpatient Ajibade_O_A H VFP VFP [id number] [facility] 2020-05-08 10:28:00 2020-05-08 10:28:00 Outpatient Ajibade_O_A H VFP VFP [id number] [facility] 2020-05-08 00:00:00 2020-05-08 00:00:00 Maxine Saenz, T RAIL TURNER: [address] [facility], [address], [place] [address] , Ph. VFP [place] - [facility] - [email or web address]_ [place] [facility] [id number] [facility] 2020-04-27 07:09:00 2020-04-27 07:09:00 Outpatient Ajibade_O_A H VFP VFP [id number] [facility] 2020-04-04 03:46:00 2020-04-04 03:46:00 Outpatient Ajibade_O_A H VFP VFP [id number] [facility] 2020-04-02 11:58:00 2020-04-02 11:58:00 Outpatient Ajibade_O_A H VFP VFP [id number] [facility] 2020-03-09 04:19:00 2020-03-09 04:19:00 Outpatient Ajibade_O_A H VFP VFP [id number] [facility] 2020-03-02 04:16:00 2020-03-02 04:16:00 Outpatient Ajibade_O_A H VFP VFP [id number] [facility] 2020-03-02 00:00:00 2020-03-02 00:00:00 Maxine Saenz, T RAIL TURNER: [address] [facility], [address], [place] [address] , Ph. VFP [place] - [facility] - [email or web address]_ [place] [facility] [id number] [facility] 2019-08-18 07:15:00 2019-08-18 07:15:00 Outpatient Ige-Odunuga _J_AH VFP VFP [id number] [facility] Results Test Description Test Time Test Comments Results Resul t Comments Source BI GLENN GUIDED CORE BREAST BIOPSY RIGHT 2024-04- 8 23:22:12 Examination:BI GLENN GUIDED CORE BREAST BIOPSY RIGHT The procedure was explained to the patient including benefits and alternatives. ?The risks, including but not limited to infection and bleeding, were reviewed and the patient agreed to undergo the procedure, signing the consent form. ?Timeout was performed. History:Patient is a 79 year old year old female and is seen for: ? Abnormal mamogram. Comparisons: 04/14/2024 BI DIAGNOSTIC TOMOSYNTHESIS RIGHT and 06/04/2023 BI DIAGNOSTIC TOMOSYNTHESIS LEFT Prior exam with the following findings: RightA 3 mm group of amorphous and pleomorphic calcifications in the lateral breast, middle depth ("A") with no definite sonographic correlate are at low suspicion for malignancy. ?BI-RADS 4A. CURRENT EXAM: ? The patient was upright position for the biopsy. ?The area of interest was localized and targeted via superior approach utilizing digital spot mammography with computer calculation. After antiseptic preparation the skin puncture site was infiltrated with lidocaine. ?Deep local anesthesia about the biopsy site was administered using lidocaine with epinephrine. ?A skin incision was made. ?A 9 gauge Eviva vacuum-assisted automated core biopsy needle was inserted to the computer determined depth, and stereotactic images showed satisfactory relationship of the needle position to the targeted right breast calcifications in the lateral breast, middle depth. ?Tissue cores were obtained. ?Digital specimen radiography showed calcifications within some of the cores. ?A BAR shaped tissue marker clip was deployed through the needle, and the needle was withdrawn. Post biopsy mammogram confirmed the clip at the biopsy site. Recommendation:Pend ing pathology results - Right tissue sampling of the calcifications in the lateral right breast, middle depth. ?Bar shaped clip. ?BI-RADS 4A. [facility] BI ULTRASOUND BREAST COMPLETE RIGHT 2023--1 6 19:15:46 Examination:BI ULTRASOUND BREAST COMPLETE RIGHTBI DIAGNOSTIC TOMOSYNTHESIS RIGHT History:Patient is 78 year old and is seen for: Left breast screening in the setting of prior left breast malignancy status postmastectomy and chemotherapy. Comparisons: 06/04/2023 BI DIAGNOSTIC TOMOSYNTHESIS LEFT Findings: RightBI DIAGNOSTIC TOMOSYNTHESIS RIGHTThe breasts are extremely dense, which lowers the sensitivity of mammography. There is a 3 mm group of amorphous and pleomorphic calcifications in the outer breast at middle depth, labeled "A "on magnified CC view. ?This appears to be a new finding. The grouped coarse calcifications in the upper outer breast at anterior depth labeled "B" are stable dating back to atleast 2022 and present dating back to 2021. BI ULTRASOUND BREAST COMPLETE RIGHTSurvey ultrasound of the right breast and axilla was performed. No sonographic abnormality was identified for the mammographic findings. Incidentally noted was a mass with echogenic calcifications at 12:00, 3 cm from the nipple, favored to correlate with the mammographic mass with popcorn type calcifications. Ultrasound of visualized level 1 axillary lymph nodes were normal. ? Incidentally noted was a complex sebaceous cyst with cutaneous tract to the skin surface at the palpable area in the right axilla. ?Of note, similar appearance of a sebaceous cyst was noted in the left axilla in May 2023. Impression: RightA 3 mm group of amorphous and pleomorphic calcifications in the lateral breast, middle depth ("A") with no definite sonographic correlate are at low suspicion for malignancy. ?BI-RADS 4A. Recommendation:Glenn synthesis Biopsy - Right These findings and recommendations were discussed with the patient at the conclusion of today's examination. BI-RADS Category:Right 4A - Suspicious Abnormality - Biopsy Should Be Considered - Low Suspicion for Malignancy [facility] BI DIAGNOSTIC TOMOSYNTHESIS RIGHT 2024-03- 6 19:15:46 Examination:BI ULTRASOUND BREAST COMPLETE RIGHTBI DIAGNOSTIC TOMOSYNTHESIS RIGHT History:Patient is 78 year old and is seen for: Left breast screening in the setting of prior left breast malignancy status postmastectomy and chemotherapy. Comparisons: 06/04/2023 BI DIAGNOSTIC TOMOSYNTHESIS LEFT Findings: RightBI DIAGNOSTIC TOMOSYNTHESIS RIGHTThe breasts are extremely dense, which lowers the sensitivity of mammography. There is a 3 mm group of amorphous and pleomorphic calcifications in the outer breast at middle depth, labeled "A "on magnified CC view. ?This appears to be a new finding. The grouped coarse calcifications in the upper outer breast at anterior depth labeled "B" are stable dating back to atleast 2022 and present dating back to 2021. BI ULTRASOUND BREAST COMPLETE RIGHTSurvey ultrasound of the right breast and axilla was performed. No sonographic abnormality was identified for the mammographic findings. Incidentally noted was a mass with echogenic calcifications at 12:00, 3 cm from the nipple, favored to correlate with the mammographic mass with popcorn type calcifications. Ultrasound of visualized level 1 axillary lymph nodes were normal. ? Incidentally noted was a complex sebaceous cyst with cutaneous tract to the skin surface at the palpable area in the right axilla. ?Of note, similar appearance of a sebaceous cyst was noted in the left axilla in May 2023. Impression: RightA 3 mm group of amorphous and pleomorphic calcifications in the lateral breast, middle depth ("A") with no definite sonographic correlate are at low suspicion for malignancy. ?BI-RADS 4A. Recommendation:Glenn synthesis Biopsy - Right These findings and recommendations were discussed with the patient at the conclusion of today's examination. BI-RADS Category:Right 4A - Suspicious Abnormality - Biopsy Should Be Considered - Low Suspicion for Malignancy [facility] COMPREHENSIVE METABOLIC [id number] 06:23:50* Test Item Value Reference Range Interpretation Comme nts GLUCOSE (test code = 2216) 94 MG/DL 70-99 BUN (test code = 2207) 7 MG/DL 8-23 L CREATININE (test code = 2213) 0.62 MG/DL 0.60-1.30 eGFR (2020 CKD-EPI) (test code = 22217) 91 ML/MIN/1.73 >60 CALC BUN/CREAT (test code = 5) 11 RATIO 6-28 SODIUM (test code = 2230) 141 MEQ/L 133-146 POTASSIUM (test code = 2227) 4.7 MEQ/L 3.5-5.4 CHLORIDE (test code = 2214) 100 MEQ/L 95-107 CARBON DIOXIDE (test code = 6) 31 MEQ/L 19-31 CALCIUM (test code = 2208) 9.8 MG/DL 8.5-10.5 PROTEIN, TOTAL (test code = 2228) 6.6 G/DL 6.1-8.3 ALBUMIN (test code = 2200) 4.1 G/DL 3.5-5.2 CALC GLOBULIN (test code = 2240) 2.5 G/DL 1.9-3.7 CALC A/G RATIO (test code = 2233) 1.6 RATIO 1.0-2.6 BILIRUBIN, TOTAL (test code = 2206) 0.2 MG/DL <=1.2 ALKALINE PHOSPHATASE (test code = 2203) 99 U/L 40-142 AST (test code = 2217) 20 U/L 9-40 ALT (test code = 2219) 11 U/L 5-40 UNLESS OTHERWISE INDICATED, ALL TESTING PERFORMED AT [facility] [address] [place] [id number] VOLLEYBALL COACH: YUNIEL GONZALEZ M.D. CLIA NUMBER [id number] [facility] [place]. [id number] HEMOGLOBIN [id number] 04:15:31* Test Item Value Reference Range Interpretation Comme nts HEMOGLOBIN A1c (test code = 91744) 5.7 % 4.2-5.6 H [employer] GUIDELINES FOR HGB A1C: PREDIABETES/INCREASED RISK . . . . . . . 5.7-6.4% DIAGNOSIS OF DIABETES . . . . . . . . . >=6.5% WITH CONFIRMATION OR APPROPRIATE SYMPTOMS NOTE: ASSAY MAY BE AFFECTED BY HEMOGLOBINOPATHIES (SICKLE CELL ANEMIA, S-C DISEASE, OTHERS) OR ARTIFICIALLY LOWERED BY DECREASED RED CELL SURVIVAL (HEMOLYTIC ANEMIAS, BLOOD LOSS, ETC.). CONSIDER ALTERNATE TESTING OR LABORATORY CONSULTATION. HEMOGLOBIN [id number] 00:00:00* Test Item Value Reference Range Interpretation Comme [facility] HEMOGLOBIN A1c (test code = 35442) 5.7 % Sandeep Hendrix NaveedLIPID [id number] 00:00:00* Test Item Value Reference Range Interpretation Comme nts CHOLESTEROL (test code = 2210) 184 MG/DL TRIGLYCERIDES (test code = 2232) 96 MG/DL HDL CHOLESTEROL (test code = 2220) 93 MG/DL CALC LDL CHOL (test code = 2237) 73 MG/DL RISK RATIO LDL/HDL (test cod e = 2238) 0.78 RATIO Sandeep LucioCOMPREHENSIVE METABOLIC [id number] 00:00:00* Test Item Value Reference Range Interpretation Comme nts GLUCOSE (test code = 2217) 94 MG/DL BUN (test code = 2208) 7 MG/DL CREATININE (test code = 2214) 0.62 MG/DL eGFR (2020 CKD-EPI) (test co de = 03816) 91 ML/MIN/1.73 CALC BUN/CREAT (test code = 2235) 11 RATIO SODIUM (test code = 2231) 141 MEQ/L POTASSIUM (test code = 2228) 4.7 MEQ/L CHLORIDE (test code = 2215) 100 MEQ/L CARBON DIOXIDE (test code = 2206) 31 MEQ/L CALCIUM (test code = 2209) 9.8 MG/DL PROTEIN, TOTAL (test code = 2229) 6.6 G/DL ALBUMIN (test code = 2201) 4.1 G/DL CALC GLOBULIN (test code = 2240) 2.5 G/DL CALC A/G RATIO (test code = 2234) 1.6 RATIO BILIRUBIN, TOTAL (test code = 2207) 0.2 MG/DL ALKALINE PHOSPHATASE (test code = 2204) 99 U/L AST (test code = 2218) 20 U/L ALT (test code = 2219) 11 U/L Sandeep LucioFL TIME OR (NON-REPORTABLE)2023-07-11 18:36:18These images do not require a Radiology diagnostic report.[facility] ([facility])2023-07-11 18:36:18These images do not require a Radiology diagnostic report.[facility] SENTINEL [id number] 17:16:44SENTINEL NODE INJECTION CLINICAL INDICATION: Left breast cancer. TECHNIQUE AND FINDINGS: With aseptic technique 1.1 mCi of technetium 99multra filtrated sulfur colloid was injected intradermally in 4 doses aroundleft periareolar region. No images were obtained. The patient willfollow-up with intraoperative sentinel node localization.[facility] METABOLIC PANEL (NA, K, CL, CO2, GLUCOSE, BUN, CREATININE, CA)2023-07-09 14:42:42* Test Item Value Reference Range Interpretation Comme nts NA (test code = 7489016568) 138 mmol/L 135-145 K (test code = 4519850697) 3.7 mmol/L 3.5-5.0 CL (test code = 5925629041) 103 mmol/L 98-108 CO2 TOTAL (test code = 5646744199) 29 mmol/L 23-31 AGAP (test code = 1161570274) 6 2-16 BUN (test code = 8744039351) 8 mg/dL 7-23 GLUCOSE (test code = 5596182808) 116 mg/dL 70-110 H CREATININE (test code = 3578783159) 0.46 mg/dL 0.50-1.04 L CALCIUM (test code = 2772611428) 9.2 mg/dL 8.6-10.6 eGFR (test code = 22711-5) 98.1 mL/min/1.73m2 CKD-EPI eGFR (2020). Assuming creatinine has been stable day-to-day for at least three months, the eGFR indicates Category G1 (>= 90 mL/min/1.73 m2) Lab Interpretation (test code = 26172-6) Abnormal [facility] METABOLIC PANEL (NA, K, CL, CO2, GLUCOSE, BUN, CREATININE, CA)2023-07-09 14:42:42* Test Item Value Reference Range Interpretation Comme nts NA (test code = 3335800796) 138 mmol/L 135-145 K (test code = 8292816540) 3.7 mmol/L 3.5-5.0 CL (test code = 2208373070) 103 mmol/L 98-108 CO2 TOTAL (test code = 1409362400) 29 mmol/L 23-31 AGAP (test code = 7786979981) 6 2-16 BUN (test code = 6926558855) 8 mg/dL 7-23 GLUCOSE (test code = 9133096269) 116 mg/dL 70-110 H CREATININE (test code = 3378847485) 0.46 mg/dL 0.50-1.04 L CALCIUM (test code = 7807281494) 9.2 mg/dL 8.6-10.6 eGFR (test code = 20388-3) 98.1 mL/min/1.73m2 CKD-EPI eGFR (2020). Assuming creatinine has been stable day-to-day for at least three months, the eGFR indicates Category G1 (>= 90 mL/min/1.73 m2) Lab Interpretation (test code = 45004-7) [facility] - The Type and Screen expires at midnight on the 3rd day after it was drawn. A current Type and Screen is required when RBCs are requested. For all other blood products, a Type and Scr een performed during the current hospitalizati...2023-07-09 14:16:00* Test Item Value Reference Range Interpretation Comme nts ABO & RH (test code = 20) O Positive IAT (test code = 1185) Negative [facility] - The Type and Screen expires at midnight on the 3rd day after it was drawn. A current Type and Screen is required when RBCs are requested. For all other blood products, a Type and Scr een performed during the current hospitalizati...2023-07-09 14:16:00* Test Item Value Reference Range Interpretation Comme nts ABO & RH (test code = 20) O Positive IAT (test code = 1185) Negative [facility] CenterCULTURE, [id number] 16:00:45SPECIMEN NUMBER: [id number] CULTURE, URINE SPECIMEN NUMBER: [id number] SPECIMEN COMMENT: URINE SOURCE: URINE REPORT STATUS: FINAL ISOLATE NUMBER 1: ORGANISM: 07/04/2023 10-50,000 CFU/ML GRAM NEGATIVE BACILLI IDENTIFICATION: 07/07/2023 PSEUDOMONAS AERUGINOSA P. AERUGINOSA AMIKACIN SENSITIVE <=16CEFEPIME SENSITIVE <=2CEFTAZIDIME SENSITIVE <=1CIPROFLOXACIN SENSITIVE <=1LEVOFLOXACIN SENSITIVE <=2MEROPENEM SENSITIVE <=1PIP/TAZOBAC SENSITIVE <=16TOBRAMYCIN SENSITIVE <=4 NOTE: NUMBERS DISPLAYED REPRESENT MINIMUM INHIBITORY CONCENTRATION ([place]) WHICH IS EXPRESSEDIN MCG/ML. UNLESS OTHERWISE INDICATED, ALL TESTING PERFORMED AT [facility] [address] [place] [address] VOLLEYBALL COACH: YUNIEL GONZALEZ M.D. [place] NUMBER [id number] [facility] [place]. [id number], [id number] 00:00:00* Test Item Value Reference Range Interpretation Comme nts CULTURE, URINE (test code = 17115) SPECIMEN NUMBER: [id number] MOODY Gilliam2024-01-08 00:00:00* Test Item Value Reference Range Interpretation Comme nts CULTURE, URINE (test code = 04169) SPECIMEN NUMBER: [id number] MOODY Gilliam2024-01-08 00:00:00* Test Item Value Reference Range Interpretation Comme nts CULTURE, URINE (test code = 46779) SPECIMEN NUMBER: [id number] Sandeep Read [id number] 00:00:00* Test Item Value Reference Range Interpretation Comme nts CULTURE, URINE (test code = 36181) SPECIMEN NUMBER: [id number] Sandeep LucioCOMPREHENSIVE METABOLIC [id number] 04:17:12* Test Item Value Reference Range Interpretation Comme nts GLUCOSE (test code = 2217) 102 MG/DL 70-99 H BUN (test code = 2208) 6 MG/DL 8-23 L CREATININE (test code = 2214) 0.47 MG/DL 0.60-1.30 L eGFR (2020 CKD-EPI) (test code = 81617) 97 ML/MIN/1.73 >60 CALC BUN/CREAT (test code = 2235) 13 RATIO 6-28 SODIUM (test code = 2231) 136 MEQ/L 133-146 POTASSIUM (test code = 2228) 3.8 MEQ/L 3.5-5.4 CHLORIDE (test code = 2215) 94 MEQ/L 95-107 L CARBON DIOXIDE (test code = 2206) 29 MEQ/L 19-31 CALCIUM (test code = 2209) 9.0 MG/DL 8.5-10.5 PROTEIN, TOTAL (test code = 222) 7.1 G/DL 6.1-8.3 ALBUMIN (test code = 220) 4.4 G/DL 3.5-5.2 CALC GLOBULIN (test code = 2240) 2.7 G/DL 1.9-3.7 CALC A/G RATIO (test code = 2234) 1.6 RATIO 1.0-2.6 BILIRUBIN, TOTAL (test code = 2206) <0.2 MG/DL <=1.2 ALKALINE PHOSPHATASE (test code = 220) 82 U/L 40-142 AST (test code = 2217) 22 U/L 9-40 ALT (test code = 221) 12 U/L 5-40 UNLESS OTHERWISE INDICATED, ALL TESTING PERFORMED AT [facility] [address] [place] [address] VOLLEYBALL COACH: YUNIEL GONZALEZ M.D. CLIA NUMBER [id number] [facility] [place]. [id number] CBC W/AUTO DIFF WITH [id number] 02:39:19* Test Item Value Reference Range Interpretation Comme nts WBC (test code = 1001) 8.7 K/UL 3.5-11.0 RBC (test code = 1002) 4.25 M/UL 3.80-5.40 HEMOGLOBIN (test code = 1003) 13.6 G/DL 11.5-15.5 HEMATOCRIT (test code = 1004) 41.3 % 34.0-45.0 MCV (test code = 1005) 97.2 fL 80.0-99.0 MCH (test code = 1006) 32.0 PG 25.0-33.0 MCHC (test code = 1007) 32.9 G/DL 31.0-36.0 RDW (test code = 1038) 13.2 % 11.5-15.0 NEUTROPHILS (test code = 1008) 71.1 % LYMPHOCYTES (test code = 1010) 21.1 % MONOCYTES (test code = 1011) 6.7 % EOSINOPHILS (test code = 1012) 0.3 % BASOPHILS (test code = 1013) 0.6 % IMMATURE GRANULOCYTES (test code = 1036) 0.2 % NUCLEATED RBCS (test code = 1065) 0.0 /100 WBC'S See_Comment [Automated Funnelya ge] The system which generated this result transmitted reference range: 0.0. The reference range was not used to interpret this result as normal/abnormal. PLATELET COUNT (test code = 1015) 553 K/UL 130-400 H ABSOLUTE NEUTROPHILS (test code = 1066) 6.18 K/UL 1.50-7.50 ABSOLUTE LYMPHOCYTES (test code = 1067) 1.84 K/UL 1.00-4.00 ABSOLUTE MONOCYTES (test code = 1068) 0.58 K/UL 0.20-1.00 ABSOLUTE EOSINOPHILS (test code = 1040) 0.03 K/UL 0.00-0.50 ABSOLUTE BASOPHILS (test code = 1069) 0.05 K/UL 0.00-0.20 ABS IMMATURE GRANULOCYTES (test code = 1020) 0.02 K/UL 0.00-0.10 ABS NUCLEATED RBCS (test code = 67976) 0.00 K/UL 0.00-0.11 COMPREHENSIVE METABOLIC [id number] 00:00:00* Test Item Value Reference Range Interpretation Comme nts GLUCOSE (test code = 2217) 102 MG/DL BUN (test code = 2208) 6 MG/DL CREATININE (test code = 2214) 0.47 MG/DL eGFR (2020 CKD-EPI) (test co de = 03594) 97 ML/MIN/1.73 CALC BUN/CREAT (test code = 2235) 13 RATIO SODIUM (test code = 2231) 136 MEQ/L POTASSIUM (test code = 2228) 3.8 MEQ/L CHLORIDE (test code = 2215) 94 MEQ/L CARBON DIOXIDE (test code = 2206) 29 MEQ/L CALCIUM (test code = 2209) 9.0 MG/DL PROTEIN, TOTAL (test code = 2229) 7.1 G/DL ALBUMIN (test code = 2201) 4.4 G/DL CALC GLOBULIN (test code = 2240) 2.7 G/DL CALC A/G RATIO (test code = 2234) 1.6 RATIO BILIRUBIN, TOTAL (test code = 2207) <0.2 MG/DL ALKALINE PHOSPHATASE (test code = 2204) 82 U/L AST (test code = 2218) 22 U/L ALT (test code = 2219) 12 U/L Sandeep LucioCBC W/AUTO [id number] 00:00:00* Test Item Value Reference Range Interpretation Comme nts WBC (test code = 1001) 8.7 K/UL RBC (test code = 1002) 4.25 M/UL HEMOGLOBIN (test code = 1003) 13.6 G/DL HEMATOCRIT (test code = 1004) 41.3 % MCV (test code = 1005) 97.2 fL MCH (test code = 1006) 32.0 PG MCHC (test code = 1007) 32.9 G/DL RDW (test code = 1038) 13.2 % NEUTROPHILS (test code = 1008) 71.1 % LYMPHOCYTES (test code = 1010) 21.1 % MONOCYTES (test code = 1011) 6.7 % EOSINOPHILS (test code = 1012) 0.3 % BASOPHILS (test code = 1013) 0.6 % IMMATURE GRANULOCYTES (test code = 1036) 0.2 % NUCLEATED RBCS (test code = 1065) 0.0 /100WBC'S PLATELET COUNT (test code = 1015) 553 K/UL ABSOLUTE NEUTROPHILS (test c ode = 1066) 6.18 K/UL ABSOLUTE LYMPHOCYTES (test c ode = 1067) 1.84 K/UL ABSOLUTE MONOCYTES (test cod e = 1068) 0.58 K/UL ABSOLUTE EOSINOPHILS (test c ode = 1040) 0.03 K/UL ABSOLUTE BASOPHILS (test cod e = 1069) 0.05 K/UL ABS IMMATURE GRANULOCYTES (t est code = 1020) 0.02 K/UL ABS NUCLEATED RBCS (test cod e = 80752) 0.00 K/UL Sandeep LucioCOMPREHENSIVE METABOLIC [id number] 00:00:00* Test Item Value Reference Range Interpretation Comme nts GLUCOSE (test code = 2217) 102 MG/DL BUN (test code = 2208) 6 MG/DL CREATININE (test code = 2214) 0.47 MG/DL eGFR (2020 CKD-EPI) (test co de = 24822) 97 ML/MIN/1.73 CALC BUN/CREAT (test code = 2235) 13 RATIO SODIUM (test code = 2231) 136 MEQ/L POTASSIUM (test code = 2228) 3.8 MEQ/L CHLORIDE (test code = 2215) 94 MEQ/L CARBON DIOXIDE (test code = 2206) 29 MEQ/L CALCIUM (test code = 2209) 9.0 MG/DL PROTEIN, TOTAL (test code = 2229) 7.1 G/DL ALBUMIN (test code = 2201) 4.4 G/DL CALC GLOBULIN (test code = 2240) 2.7 G/DL CALC A/G RATIO (test code = 2234) 1.6 RATIO BILIRUBIN, TOTAL (test code = 2207) <0.2 MG/DL ALKALINE PHOSPHATASE (test code = 2204) 82 U/L AST (test code = 2218) 22 U/L ALT (test code = 2219) 12 U/L Sandeep Hendrix [facility] W/AUTO [id number] 00:00:00* Test Item Value Reference Range Interpretation Comme nts WBC (test code = 1001) 8.7 K/UL RBC (test code = 1002) 4.25 M/UL HEMOGLOBIN (test code = 1003) 13.6 G/DL HEMATOCRIT (test code = 1004) 41.3 % MCV (test code = 1005) 97.2 fL MCH (test code = 1006) 32.0 PG MCHC (test code = 1007) 32.9 G/DL RDW (test code = 1038) 13.2 % NEUTROPHILS (test code = 1008) 71.1 % LYMPHOCYTES (test code = 1010) 21.1 % MONOCYTES (test code = 1011) 6.7 % EOSINOPHILS (test code = 1012) 0.3 % BASOPHILS (test code = 1013) 0.6 % IMMATURE GRANULOCYTES (test code = 1036) 0.2 % NUCLEATED RBCS (test code = 1065) 0.0 /100WBC'S PLATELET COUNT (test code = 1015) 553 K/UL ABSOLUTE NEUTROPHILS (test c ode = 1066) 6.18 K/UL ABSOLUTE LYMPHOCYTES (test c ode = 1067) 1.84 K/UL ABSOLUTE MONOCYTES (test cod e = 1068) 0.58 K/UL ABSOLUTE EOSINOPHILS (test c ode = 1040) 0.03 K/UL ABSOLUTE BASOPHILS (test cod e = 1069) 0.05 K/UL ABS IMMATURE GRANULOCYTES (t est code = 1020) 0.02 K/UL ABS NUCLEATED RBCS (test cod e = 00464) 0.00 K/UL Sandeep LucioCOMPREHENSIVE METABOLIC [id number] 00:00:00* Test Item Value Reference Range Interpretation Comme nts GLUCOSE (test code = 2217) 102 MG/DL BUN (test code = 2208) 6 MG/DL CREATININE (test code = 2214) 0.47 MG/DL eGFR (2020 CKD-EPI) (test co de = 06818) 97 ML/MIN/1.73 CALC BUN/CREAT (test code = 2235) 13 RATIO SODIUM (test code = 2231) 136 MEQ/L POTASSIUM (test code = 2228) 3.8 MEQ/L CHLORIDE (test code = 2215) 94 MEQ/L CARBON DIOXIDE (test code = 2206) 29 MEQ/L CALCIUM (test code = 2209) 9.0 MG/DL PROTEIN, TOTAL (test code = 2229) 7.1 G/DL ALBUMIN (test code = 2201) 4.4 G/DL CALC GLOBULIN (test code = 2240) 2.7 G/DL CALC A/G RATIO (test code = 2234) 1.6 RATIO BILIRUBIN, TOTAL (test code = 2207) <0.2 MG/DL ALKALINE PHOSPHATASE (test code = 2204) 82 U/L AST (test code = 2218) 22 U/L ALT (test code = 2219) 12 U/L Sandeep LucioCBC W/AUTO [id number] 00:00:00* Test Item Value Reference Range Interpretation Comme nts WBC (test code = 1001) 8.7 K/UL RBC (test code = 1002) 4.25 M/UL HEMOGLOBIN (test code = 1003) 13.6 G/DL HEMATOCRIT (test code = 1004) 41.3 % MCV (test code = 1005) 97.2 fL MCH (test code = 1006) 32.0 PG MCHC (test code = 1007) 32.9 G/DL RDW (test code = 1038) 13.2 % NEUTROPHILS (test code = 1008) 71.1 % LYMPHOCYTES (test code = 1010) 21.1 % MONOCYTES (test code = 1011) 6.7 % EOSINOPHILS (test code = 1012) 0.3 % BASOPHILS (test code = 1013) 0.6 % IMMATURE GRANULOCYTES (test code = 1036) 0.2 % NUCLEATED RBCS (test code = 1065) 0.0 /100WBC'S PLATELET COUNT (test code = 1015) 553 K/UL ABSOLUTE NEUTROPHILS (test c ode = 1066) 6.18 K/UL ABSOLUTE LYMPHOCYTES (test c ode = 1067) 1.84 K/UL ABSOLUTE MONOCYTES (test cod e = 1068) 0.58 K/UL ABSOLUTE EOSINOPHILS (test c ode = 1040) 0.03 K/UL ABSOLUTE BASOPHILS (test cod e = 1069) 0.05 K/UL ABS IMMATURE GRANULOCYTES (t est code = 1020) 0.02 K/UL ABS NUCLEATED RBCS (test cod e = 13263) 0.00 K/UL Sandeep LucioCOMPREHENSIVE METABOLIC [id number] 00:00:00* Test Item Value Reference Range Interpretation Comme nts GLUCOSE (test code = 2217) 102 MG/DL BUN (test code = 2208) 6 MG/DL CREATININE (test code = 2214) 0.47 MG/DL eGFR (2020 CKD-EPI) (test co de = 54627) 97 ML/MIN/1.73 CALC BUN/CREAT (test code = 2235) 13 RATIO SODIUM (test code = 2231) 136 MEQ/L POTASSIUM (test code = 2228) 3.8 MEQ/L CHLORIDE (test code = 2215) 94 MEQ/L CARBON DIOXIDE (test code = 2206) 29 MEQ/L CALCIUM (test code = 2209) 9.0 MG/DL PROTEIN, TOTAL (test code = 2229) 7.1 G/DL ALBUMIN (test code = 2201) 4.4 G/DL CALC GLOBULIN (test code = 2240) 2.7 G/DL CALC A/G RATIO (test code = 2234) 1.6 RATIO BILIRUBIN, TOTAL (test code = 2207) <0.2 MG/DL ALKALINE PHOSPHATASE (test code = 2204) 82 U/L AST (test code = 2218) 22 U/L ALT (test code = 2219) 12 U/L Sandeep LucioCBC W/AUTO [id number] 00:00:00* Test Item Value Reference Range Interpretation Comme nts WBC (test code = 1001) 8.7 K/UL RBC (test code = 1002) 4.25 M/UL HEMOGLOBIN (test code = 1003) 13.6 G/DL HEMATOCRIT (test code = 1004) 41.3 % MCV (test code = 1005) 97.2 fL MCH (test code = 1006) 32.0 PG MCHC (test code = 1007) 32.9 G/DL RDW (test code = 1038) 13.2 % NEUTROPHILS (test code = 1008) 71.1 % LYMPHOCYTES (test code = 1010) 21.1 % MONOCYTES (test code = 1011) 6.7 % EOSINOPHILS (test code = 1012) 0.3 % BASOPHILS (test code = 1013) 0.6 % IMMATURE GRANULOCYTES (test code = 1036) 0.2 % NUCLEATED RBCS (test code = 1065) 0.0 /100WBC'S PLATELET COUNT (test code = 1015) 553 K/UL ABSOLUTE NEUTROPHILS (test c ode = 1066) 6.18 K/UL ABSOLUTE LYMPHOCYTES (test c ode = 1067) 1.84 K/UL ABSOLUTE MONOCYTES (test cod e = 1068) 0.58 K/UL ABSOLUTE EOSINOPHILS (test c ode = 1040) 0.03 K/UL ABSOLUTE BASOPHILS (test cod e = 1069) 0.05 K/UL ABS IMMATURE GRANULOCYTES (t est code = 1020) 0.02 K/UL ABS NUCLEATED RBCS (test cod e = 16268) 0.00 K/UL Sandeep LucioCOMPREHENSIVE METABOLIC [id number] 04:55:49* Test Item Value Reference Range Interpretation Comme nts GLUCOSE (test code = 2217) 101 MG/DL 70-99 H BUN (test code = 2208) 9 MG/DL 8-23 CREATININE (test code = 2214) 0.55 MG/DL 0.60-1.30 L eGFR (2020 CKD-EPI) (test code = 42206) 94 ML/MIN/1.73 >60 CALC BUN/CREAT (test code = 2235) 16 RATIO 6-28 SODIUM (test code = 223) 142 MEQ/L 133-146 POTASSIUM (test code = 2228) 4.6 MEQ/L 3.5-5.4 CHLORIDE (test code = 2215) 102 MEQ/L 95-107 CARBON DIOXIDE (test code = 6) 26 MEQ/L 19-31 CALCIUM (test code = 2208) 9.5 MG/DL 8.5-10.5 PROTEIN, TOTAL (test code = 2229) 6.9 G/DL 6.1-8.3 ALBUMIN (test code = 1) 4.2 G/DL 3.5-5.2 CALC GLOBULIN (test code = 0) 2.7 G/DL 1.9-3.7 CALC A/G RATIO (test code = 2233) 1.6 RATIO 1.0-2.6 BILIRUBIN, TOTAL (test code = 2206) 0.2 MG/DL See_Comment [Automated me ssage] The system which generated this result transmitted reference range: <=1.2. The reference range was not used to interpret this result as normal/abnormal. ALKALINE PHOSPHATASE (test code = 2203) 83 U/L 40-142 AST (test code = 2217) 15 U/L 9-40 ALT (test code = 2218) 8 U/L 5-40 LIPID [id number] 04:55:49* Test Item Value Reference Range Interpretation Comme nts CHOLESTEROL (test code = 0) 208 MG/DL <200 H TRIGLYCERIDES (test code = 2) 113 MG/DL <150 HDL CHOLESTEROL (test code = 0) 87 MG/DL >39 CALC LDL CHOL (test code = 2236) 100 MG/DL <100 H NOTE: CALCULATED LDL IS BASED ON GERRI-WALTER METHOD WHICHINCLUDES ADJUSTABLE TRIGLYCERIDE:VLDL CHOLESTEROL RATIO.THIS FACTOR VARIES BY MEASURED TRIGLYCERIDE AND NON-HDLCHOLESTEROL CONCENTRATIONS WITH INCREASED CALCULATED LDL SEENIN HIGHER TRIGLYCERIDE OR LOWER NON-HDL SPECIMENS. FOR MOREINFORMATION, SEE CLIENT ANNOUNCEMENT AT [email or web address] RATIO LDL/HDL (test code = 2238) 1.15 RATIO <3.22 HEMOGLOBIN [id number] 03:04:30* Test Item Value Reference Range Interpretation Comme nts HEMOGLOBIN A1c (test code = 17943) 5.7 % 4.2-5.6 H [employer] GUIDELINES FOR HGB A1C: PREDIABETES/INCREASED RISK . . . . . . . 5.7-6.4% DIAGNOSIS OF DIABETES . . . . . . . . . >=6.5% WITH CONFIRMATION OR APPROPRIATE SYMPTOMS NOTE: ASSAY MAY BE AFFECTED BY HEMOGLOBINOPATHIES (SICKLE CELL ANEMIA, S-C DISEASE, OTHERS) OR ARTIFICIALLY LOWERED BY DECREASED RED CELL SURVIVAL (HEMOLYTIC ANEMIAS, BLOOD LOSS, ETC.). CONSIDER ALTERNATE TESTING OR LABORATORY CONSULTATION. UNLESS OTHERWISE INDICATED, ALL TESTING PERFORMED AT [facility] [address] [place] [id number] [employer] COACH: YUNIEL GONZALEZ M.D. [place] NUMBER [id number] [facility] [place]. [id number] LIPID PANEL [ADDED]2023-03-05 00:00:00* Test Item Value Reference Range Interpretation Comme nts CHOLESTEROL (test code = 2210) 208 MG/DL TRIGLYCERIDES (test code = 2232) 113 MG/DL HDL CHOLESTEROL (test code = 2220) 87 MG/DL CALC LDL CHOL (test code = 2237) 100 MG/DL RISK RATIO LDL/HDL (test cod e = 2238) 1.15 RATIO Sandeepbarb LucioHEMOGLOBIN A1c [ADDED]2023-03-05 00:00:00* Test Item Value Reference Range Interpretation Comme nts HEMOGLOBIN A1c (test code = 87003) 5.7 % Sandeep LucioCOMPREHENSIVE METABOLIC PANEL [ADDED]2023-03-05 00:00:00* Test Item Value Reference Range Interpretation Comme nts GLUCOSE (test code = 2217) 101 MG/DL BUN (test code = 2208) 9 MG/DL CREATININE (test code = 2214) 0.55 MG/DL eGFR (2020 CKD-EPI) (test co de = 04521) 94 ML/MIN/1.73 CALC BUN/CREAT (test code = 2235) 16 RATIO SODIUM (test code = 2231) 142 MEQ/L POTASSIUM (test code = 2228) 4.6 MEQ/L CHLORIDE (test code = 2215) 102 MEQ/L CARBON DIOXIDE (test code = 2206) 26 MEQ/L CALCIUM (test code = 2209) 9.5 MG/DL PROTEIN, TOTAL (test code = 2229) 6.9 G/DL ALBUMIN (test code = 2201) 4.2 G/DL CALC GLOBULIN (test code = 2240) 2.7 G/DL CALC A/G RATIO (test code = 2234) 1.6 RATIO BILIRUBIN, TOTAL (test code = 2207) 0.2 MG/DL ALKALINE PHOSPHATASE (test code = 2204) 83 U/L AST (test code = 2218) 15 U/L ALT (test code = 2219) 8 U/L Sandeep Hendrix AustinLIPID PANEL [ADDED]2023-03-05 00:00:00* Test Item Value Reference Range Interpretation Comme nts CHOLESTEROL (test code = 2210) 208 MG/DL TRIGLYCERIDES (test code = 2232) 113 MG/DL HDL CHOLESTEROL (test code = 2220) 87 MG/DL CALC LDL CHOL (test code = 2237) 100 MG/DL RISK RATIO LDL/HDL (test cod e = 2238) 1.15 RATIO Sandeep LucioHEMOGLOBIN A1c [ADDED]2023-03-05 00:00:00* Test Item Value Reference Range Interpretation Comme nts HEMOGLOBIN A1c (test code = 73462) 5.7 % Sandeep LucioCOMPREHENSIVE METABOLIC PANEL [ADDED]2023-03-05 00:00:00* Test Item Value Reference Range Interpretation Comme nts GLUCOSE (test code = 2217) 101 MG/DL BUN (test code = 2208) 9 MG/DL CREATININE (test code = 2214) 0.55 MG/DL eGFR (2020 CKD-EPI) (test co de = 89938) 94 ML/MIN/1.73 CALC BUN/CREAT (test code = 2235) 16 RATIO SODIUM (test code = 2231) 142 MEQ/L POTASSIUM (test code = 2228) 4.6 MEQ/L CHLORIDE (test code = 2215) 102 MEQ/L CARBON DIOXIDE (test code = 2206) 26 MEQ/L CALCIUM (test code = 2209) 9.5 MG/DL PROTEIN, TOTAL (test code = 2229) 6.9 G/DL ALBUMIN (test code = 2201) 4.2 G/DL CALC GLOBULIN (test code = 2240) 2.7 G/DL CALC A/G RATIO (test code = 2234) 1.6 RATIO BILIRUBIN, TOTAL (test code = 2207) 0.2 MG/DL ALKALINE PHOSPHATASE (test code = 2204) 83 U/L AST (test code = 2218) 15 U/L ALT (test code = 2219) 8 U/L Sandeep Hendrix AustinLIPID PANEL [ADDED]2023-03-05 00:00:00* Test Item Value Reference Range Interpretation Comme nts CHOLESTEROL (test code = 2210) 208 MG/DL TRIGLYCERIDES (test code = 2232) 113 MG/DL HDL CHOLESTEROL (test code = 2220) 87 MG/DL CALC LDL CHOL (test code = 2237) 100 MG/DL RISK RATIO LDL/HDL (test cod e = 2238) 1.15 RATIO Sandeep LucioHEMOGLOBIN A1c [ADDED]2023-03-05 00:00:00* Test Item Value Reference Range Interpretation Comme nts HEMOGLOBIN A1c (test code = 69230) 5.7 % Sandeep LucioCOMPREHENSIVE METABOLIC PANEL [ADDED]2023-03-05 00:00:00* Test Item Value Reference Range Interpretation Comme nts GLUCOSE (test code = 2217) 101 MG/DL BUN (test code = 2208) 9 MG/DL CREATININE (test code = 2214) 0.55 MG/DL eGFR (2020 CKD-EPI) (test co de = 07181) 94 ML/MIN/1.73 CALC BUN/CREAT (test code = 2235) 16 RATIO SODIUM (test code = 2231) 142 MEQ/L POTASSIUM (test code = 2228) 4.6 MEQ/L CHLORIDE (test code = 2215) 102 MEQ/L CARBON DIOXIDE (test code = 2206) 26 MEQ/L CALCIUM (test code = 2209) 9.5 MG/DL PROTEIN, TOTAL (test code = 2229) 6.9 G/DL ALBUMIN (test code = 2201) 4.2 G/DL CALC GLOBULIN (test code = 2240) 2.7 G/DL CALC A/G RATIO (test code = 2234) 1.6 RATIO BILIRUBIN, TOTAL (test code = 2207) 0.2 MG/DL ALKALINE PHOSPHATASE (test code = 2204) 83 U/L AST (test code = 2218) 15 U/L ALT (test code = 2219) 8 U/L Sandeep LucioLIPID PANEL [ADDED]2023-03-05 00:00:00* Test Item Value Reference Range Interpretation Comme nts CHOLESTEROL (test code = 2210) 208 MG/DL TRIGLYCERIDES (test code = 2232) 113 MG/DL HDL CHOLESTEROL (test code = 2220) 87 MG/DL CALC LDL CHOL (test code = 2237) 100 MG/DL RISK RATIO LDL/HDL (test cod e = 2238) 1.15 RATIO Sandeep LucioHEMOGLOBIN A1c [ADDED]2023-03-05 00:00:00* Test Item Value Reference Range Interpretation Comme nts HEMOGLOBIN A1c (test code = 89803) 5.7 % Sandeep LucioCOMPREHENSIVE METABOLIC PANEL [ADDED]2023-03-05 00:00:00* Test Item Value Reference Range Interpretation Comme nts GLUCOSE (test code = 2217) 101 MG/DL BUN (test code = 2208) 9 MG/DL CREATININE (test code = 2214) 0.55 MG/DL eGFR (2020 CKD-EPI) (test co de = 07843) 94 ML/MIN/1.73 CALC BUN/CREAT (test code = 2235) 16 RATIO SODIUM (test code = 2231) 142 MEQ/L POTASSIUM (test code = 2228) 4.6 MEQ/L CHLORIDE (test code = 2215) 102 MEQ/L CARBON DIOXIDE (test code = 2206) 26 MEQ/L CALCIUM (test code = 2209) 9.5 MG/DL PROTEIN, TOTAL (test code = 2229) 6.9 G/DL ALBUMIN (test code = 2201) 4.2 G/DL CALC GLOBULIN (test code = 2240) 2.7 G/DL CALC A/G RATIO (test code = 2234) 1.6 RATIO BILIRUBIN, TOTAL (test code = 2207) 0.2 MG/DL ALKALINE PHOSPHATASE (test code = 2204) 83 U/L AST (test code = 2218) 15 U/L ALT (test code = 2219) 8 U/L Sandeep LucioHEMOGLOBIN [id number] 02:57:47* Test Item Value Reference Range Interpretation Comme nts HEMOGLOBIN A1c (test code = 04071) 5.8 % 4.2-5.6 H [employer] GUIDELINES FOR HGB A1C: PREDIABETES/INCREASED RISK . . . . . . . 5.7-6.4% DIAGNOSIS OF DIABETES . . . . . . . . . >=6.5% WITH CONFIRMATION OR APPROPRIATE SYMPTOMS NOTE: ASSAY MAY BE AFFECTED BY HEMOGLOBINOPATHIES (SICKLE CELL ANEMIA, S-C DISEASE, OTHERS) OR ARTIFICIALLY LOWERED BY DECREASED RED CELL SURVIVAL (HEMOLYTIC ANEMIAS, BLOOD LOSS, ETC.). CONSIDER ALTERNATE TESTING OR LABORATORY CONSULTATION. UNLESS OTHERWISE INDICATED, ALL TESTING PERFORMED AT [facility] [address] [place] [address] VOLLEYBALL COACH: YUNIEL GONZALEZ M.D. CLIA NUMBER [id number] [facility] [place]. [id number] LIPID [id number] 04:49:53* Test Item Value Reference Range Interpretation Comme nts CHOLESTEROL (test code = 2210) 218 MG/DL <200 H TRIGLYCERIDES (test code = 2232) 126 MG/DL <150 HDL CHOLESTEROL (test code = 2220) 92 MG/DL >39 CALC LDL CHOL (test code = 2237) 103 MG/DL <100 H NOTE: CALCULATED LDL IS BASED ON GERRI-WALTER METHOD WHICHINCLUDES ADJUSTABLE TRIGLYCERIDE:VLDL CHOLESTEROL RATIO.THIS FACTOR VARIES BY MEASURED TRIGLYCERIDE AND NON-HDLCHOLESTEROL CONCENTRATIONS WITH INCREASED CALCULATED LDL SEENIN HIGHER TRIGLYCERIDE OR LOWER NON-HDL SPECIMENS. FOR MOREINFORMATION, SEE CLIENT ANNOUNCEMENT AT [email or web address] [email or web address] RATIO LDL/HDL (test code = 2238) 1.12 RATIO <3.22 COMPREHENSIVE METABOLIC [id number] 04:49:53* Test Item Value Reference Range Interpretation Comme nts GLUCOSE (test code = 2217) 104 MG/DL 70-99 H BUN (test code = 2208) 12 MG/DL 8-23 CREATININE (test code = 2214) 0.55 MG/DL 0.60-1.30 L eGFR (2020 CKD-EPI) (test code = 45745) 94 ML/MIN/1.73 >60 CALC BUN/CREAT (test code = 2235) 22 RATIO 6-28 SODIUM (test code = 223) 146 MEQ/L 133-146 POTASSIUM (test code = 2228) 4.4 MEQ/L 3.5-5.4 CHLORIDE (test code = 2215) 104 MEQ/L 95-107 CARBON DIOXIDE (test code = 2206) 30 MEQ/L 19-31 CALCIUM (test code = 2209) 9.8 MG/DL 8.5-10.5 PROTEIN, TOTAL (test code = 222) 7.3 G/DL 6.1-8.3 ALBUMIN (test code = 220) 4.3 G/DL 3.5-5.2 CALC GLOBULIN (test code = 2240) 3.0 G/DL 1.9-3.7 CALC A/G RATIO (test code = 2234) 1.4 RATIO 1.0-2.6 BILIRUBIN, TOTAL (test code = 2207) 0.3 MG/DL See_Comment [Automated me ssage] The system which generated this result transmitted reference range: <=1.2. The reference range was not used to interpret this result as normal/abnormal. ALKALINE PHOSPHATASE (test code = 2204) 91 U/L 40-142 AST (test code = 2218) 20 U/L 9-40 ALT (test code = 2219) 11 U/L 5-40 [facility] has impo rtant pathology staff changes effective 08/28/2022. New pathology staff will provide uninterrupted, excellent patient care and clinical consultation. See URL: [email or web address]. UNLESS OTHERWISE INDICATED, ALL TESTING PERFORMED AT [facility] [address] [place] [address] VOLLEYBALL COACH: YUNIEL GONZALEZ M.D. CLIA NUMBER [id number] [facility] [place]. [id number] LIPID [id number] 00:00:00* Test Item Value Reference Range Interpretation Comme nts CHOLESTEROL (test code = 2210) 218 MG/DL TRIGLYCERIDES (test code = 2232) 126 MG/DL HDL CHOLESTEROL (test code = 2220) 92 MG/DL CALC LDL CHOL (test code = 2237) 103 MG/DL RISK RATIO LDL/HDL (test cod e = 2238) 1.12 RATIO Sandeep F NaveedCOMPREHENSIVE METABOLIC [id number] 00:00:00* Test Item Value Reference Range Interpretation Comme nts GLUCOSE (test code = 2217) 104 MG/DL BUN (test code = 2208) 12 MG/DL CREATININE (test code = 2214) 0.55 MG/DL eGFR (2020 CKD-EPI) (test co de = 74044) 94 ML/MIN/1.73 CALC BUN/CREAT (test code = 2235) 22 RATIO SODIUM (test code = 2231) 146 MEQ/L POTASSIUM (test code = 2228) 4.4 MEQ/L CHLORIDE (test code = 2215) 104 MEQ/L CARBON DIOXIDE (test code = 2206) 30 MEQ/L CALCIUM (test code = 2209) 9.8 MG/DL PROTEIN, TOTAL (test code = 2229) 7.3 G/DL ALBUMIN (test code = 2201) 4.3 G/DL CALC GLOBULIN (test code = 2240) 3.0 G/DL CALC A/G RATIO (test code = 2234) 1.4 RATIO BILIRUBIN, TOTAL (test code = 2207) 0.3 MG/DL ALKALINE PHOSPHATASE (test code = 2204) 91 U/L AST (test code = 2218) 20 U/L ALT (test code = 2219) 11 U/L Sandeep LucioLIPID [id number] 00:00:00* Test Item Value Reference Range Interpretation Comme nts CHOLESTEROL (test code = 2210) 218 MG/DL TRIGLYCERIDES (test code = 2232) 126 MG/DL HDL CHOLESTEROL (test code = 2220) 92 MG/DL CALC LDL CHOL (test code = 2237) 103 MG/DL RISK RATIO LDL/HDL (test cod e = 2238) 1.12 RATIO Sandeep LucioCOMPREHENSIVE METABOLIC [id number] 00:00:00* Test Item Value Reference Range Interpretation Comme nts GLUCOSE (test code = 2217) 104 MG/DL BUN (test code = 2208) 12 MG/DL CREATININE (test code = 2214) 0.55 MG/DL eGFR (2020 CKD-EPI) (test co de = 97614) 94 ML/MIN/1.73 CALC BUN/CREAT (test code = 2235) 22 RATIO SODIUM (test code = 2231) 146 MEQ/L POTASSIUM (test code = 2228) 4.4 MEQ/L CHLORIDE (test code = 2215) 104 MEQ/L CARBON DIOXIDE (test code = 2206) 30 MEQ/L CALCIUM (test code = 2209) 9.8 MG/DL PROTEIN, TOTAL (test code = 2229) 7.3 G/DL ALBUMIN (test code = 2201) 4.3 G/DL CALC GLOBULIN (test code = 2240) 3.0 G/DL CALC A/G RATIO (test code = 2234) 1.4 RATIO BILIRUBIN, TOTAL (test code = 2207) 0.3 MG/DL ALKALINE PHOSPHATASE (test code = 2204) 91 U/L AST (test code = 2218) 20 U/L ALT (test code = 2219) 11 U/L Sandeep LucioLIPID [id number] 00:00:00* Test Item Value Reference Range Interpretation Comme nts CHOLESTEROL (test code = 2210) 218 MG/DL TRIGLYCERIDES (test code = 2232) 126 MG/DL HDL CHOLESTEROL (test code = 2220) 92 MG/DL CALC LDL CHOL (test code = 2237) 103 MG/DL RISK RATIO LDL/HDL (test cod e = 2238) 1.12 RATIO Sandeep Hendrix AustinCOMPREHENSIVE METABOLIC [id number] 00:00:00* Test Item Value Reference Range Interpretation Comme nts GLUCOSE (test code = 2217) 104 MG/DL BUN (test code = 2208) 12 MG/DL CREATININE (test code = 2214) 0.55 MG/DL eGFR (2020 CKD-EPI) (test co de = 02948) 94 ML/MIN/1.73 CALC BUN/CREAT (test code = 2235) 22 RATIO SODIUM (test code = 2231) 146 MEQ/L POTASSIUM (test code = 2228) 4.4 MEQ/L CHLORIDE (test code = 2215) 104 MEQ/L CARBON DIOXIDE (test code = 2206) 30 MEQ/L CALCIUM (test code = 2209) 9.8 MG/DL PROTEIN, TOTAL (test code = 2229) 7.3 G/DL ALBUMIN (test code = 2201) 4.3 G/DL CALC GLOBULIN (test code = 2240) 3.0 G/DL CALC A/G RATIO (test code = 2234) 1.4 RATIO BILIRUBIN, TOTAL (test code = 2207) 0.3 MG/DL ALKALINE PHOSPHATASE (test code = 2204) 91 U/L AST (test code = 2218) 20 U/L ALT (test code = 2219) 11 U/L Sandeep Hendrix AustinLIPID [id number] 00:00:00* Test Item Value Reference Range Interpretation Comme nts CHOLESTEROL (test code = 2210) 218 MG/DL TRIGLYCERIDES (test code = 2232) 126 MG/DL HDL CHOLESTEROL (test code = 2220) 92 MG/DL CALC LDL CHOL (test code = 2237) 103 MG/DL RISK RATIO LDL/HDL (test cod e = 2238) 1.12 RATIO Sandeep F AustinCOMPREHENSIVE METABOLIC [id number] 00:00:00* Test Item Value Reference Range Interpretation Comme nts GLUCOSE (test code = 2217) 104 MG/DL BUN (test code = 2208) 12 MG/DL CREATININE (test code = 2214) 0.55 MG/DL eGFR (2020 CKD-EPI) (test co de = 36589) 94 ML/MIN/1.73 CALC BUN/CREAT (test code = 2235) 22 RATIO SODIUM (test code = 2231) 146 MEQ/L POTASSIUM (test code = 2228) 4.4 MEQ/L CHLORIDE (test code = 2215) 104 MEQ/L CARBON DIOXIDE (test code = 2206) 30 MEQ/L CALCIUM (test code = 2209) 9.8 MG/DL PROTEIN, TOTAL (test code = 2229) 7.3 G/DL ALBUMIN (test code = 2201) 4.3 G/DL CALC GLOBULIN (test code = 2240) 3.0 G/DL CALC A/G RATIO (test code = 2234) 1.4 RATIO BILIRUBIN, TOTAL (test code = 2207) 0.3 MG/DL ALKALINE PHOSPHATASE (test code = 2204) 91 U/L AST (test code = 2218) 20 U/L ALT (test code = 2219) 11 U/L Sandeep LucioLIPID [id number] 07:52:55* Test Item Value Reference Range Interpretation Comme nts CHOLESTEROL (test code = 2210) 197 MG/DL <200 TRIGLYCERIDES (test code = 2232) 77 MG/DL <150 HDL CHOLESTEROL (test code = 2220) 87 MG/DL >39 CALC LDL CHOL (test code = 2237) 93 MG/DL <100 NOTE: CALCULATED LDL IS BASED ON GERRI-WALTER METHOD WHICHINCLUDES ADJUSTABLE TRIGLYCERIDE:VLDL CHOLESTEROL RATIO.THIS FACTOR VARIES BY MEASURED TRIGLYCERIDE AND NON-HDLCHOLESTEROL CONCENTRATIONS WITH INCREASED CALCULATED LDL SEENIN HIGHER TRIGLYCERIDE OR LOWER NON-HDL SPECIMENS. FOR MOREINFORMATION, SEE CLIENT ANNOUNCEMENT AT [email or web address] [email or web address] RATIO LDL/HDL (test code = 2238) 1.07 RATIO <3.22 COMPREHENSIVE METABOLIC [id number] 07:52:55* Test Item Value Reference Range Interpretation Comme nts GLUCOSE (test code = 2217) 105 MG/DL 70-99 H BUN (test code = 2207) 10 MG/DL 8-23 CREATININE (test code = 2213) 0.50 MG/DL 0.60-1.30 L eGFR (2020 CKD-EPI) (test code = ) 97 ML/MIN/1.73 >60 CALC BUN/CREAT (test code = 2234) 20 RATIO 6-28 SODIUM (test code = 2230) 145 MEQ/L 133-146 POTASSIUM (test code = 2227) 4.6 MEQ/L 3.5-5.4 CHLORIDE (test code = 2214) 105 MEQ/L 95-107 CARBON DIOXIDE (test code = 2205) 28 MEQ/L 19-31 CALCIUM (test code = 2208) 9.7 MG/DL 8.5-10.5 PROTEIN, TOTAL (test code = 2228) 7.0 G/DL 6.1-8.3 ALBUMIN (test code = 2200) 4.1 G/DL 3.5-5.2 CALC GLOBULIN (test code = 2239) 2.9 G/DL 1.9-3.7 CALC A/G RATIO (test code = 2233) 1.4 RATIO 1.0-2.6 BILIRUBIN, TOTAL (test code = 2206) 0.2 MG/DL See_Comment [Automated me ssage] The system which generated this result transmitted reference range: <=1.2. The reference range was not used to interpret this result as normal/abnormal. ALKALINE PHOSPHATASE (test code = 2203) 90 U/L 40-142 AST (test code = 2217) 16 U/L 9-40 ALT (test code = 2218) 9 U/L 5-40 UNLESS OTHERWISE INDICATED, ALL TESTING PERFORMED [facility] [address] [place] [address] VOLLEYBALL COACH: BRONSON ZENG M.D. CLIA NUMBER [id number] [facility] [place]. [id number] TROPONIN [id number] 14:26:51* Test Item Value Reference Range Interpretation Comme nts TROPONIN I (test code = 0429985338) 0.003 ng/mL See_Comment [Automated message] The system which generated this result transmitted reference range: <=0.034. The reference range was not used to interpret this result as normal/abnormal. HANNAH (test code = HANNAH) Equal or Less than 0.034 ng/ml---Normal ?Note: Cardiac troponin begins to rise 3-4 hours after the onset of ischemia. Repeat in 4-6 hours if the sample was drawn within 3-4 hours of the onset of the symptom and found normal. Between 0.035 and 0.120 ng/mL--- Borderline. Questionable myocardial injury or necrosis ? ?Note: Serial measurement may be necessary to confirm or exclude the diagnosis of myocardial injury or necrosis; Clinical correlation (symptoms, EKGs, imaging studies, and others) required; Repeat in 4-6 hours if clinically indicated. ? Equal or Higher than 0.121 ng/mL---Abnormal. Myocardial Injury or Necrosis Likely ? Biotin has been reported to cause a negative bias, interpret results relative to patient's use of biotin. ? Lab Interpretation (test code = 24559-2) [facility] [id number] 14:23:28* Test Item Value Reference Range Interpretation Comme nts NT-proBNP (test code = 9522325158) 490 pg/mL See_Comment H [Automated message] The system which generated this result transmitted reference range: <=450. The reference range was not used to interpret this result as normal/abnormal. HANNAH (test code = HANNAH) Biotin has been reported to cause a negative bias, interpret results relative to patient's use of biotin. Lab Interpretation (test code = 22328-6) [facility]normal [facility] CenterCB WITH [id number] 11:40:32* Test Item Value Reference Range Interpretation Comme nts WBC (test code = 6690-2) See_Comment H [Automated Funnelya [employer]] The system which generated this result transmitted reference range: 4.30 - 11.10 10*3/?L. The reference range was not used to interpret this result as normal/abnormal. RBC (test code = 789-8) See_Comment L [Automated Funnelya ge] The system which generated this result transmitted reference range: 3.93 - 5.25 10*6/?L. The reference range was not used to interpret this result as normal/abnormal. HGB (test code = 718-7) 12.4 g/dL 11.6-15.0 HCT (test code = 4544-3) 36.4 % 35.7-45.2 MCV (test code = 787-2) 98.6 fL 80.6-95.5 H MCH (test code = 785-6) 33.6 pg 25.9-32.8 H MCHC (test code = 786-4) 34.1 g/dL 31.6-35.1 RDW-SD (test code = 07543-3) 51.2 fL 39.0-49.9 H RDW-CV (test code = 788-0) 14.0 % 12.0-15.5 PLT (test code = 777-3) See_Comment H [Automated messa ge] The system which generated this result transmitted reference range: 166 - 358 10*3/?L. The reference range was not used to interpret this result as normal/abnormal. MPV (test code = 38539-5) 10.2 fL 9.5-12.9 NRBC/100 WBC (test code = 4719401749) See_Comment [Automated me ssage] The system which generated this result transmitted reference range: 0.0 - 10.0 /100 WBCs. The reference range was not used to interpret this result as normal/abnormal. NRBC x10^3 (test code = 8482961424) <0.01 See_Comment [Automated messa ge] The system which generated this result transmitted reference range: 10*3/?L. The reference range was not used to interpret this result as normal/abnormal. GRAN MAT (NEUT) % (test code = 770-8) 71.9 % IMM GRAN % (test code = 8227413776) 0.40 % LYMPH % (test code = 736-9) 13.9 % MONO % (test code = 5905-5) 13.5 % EOS % (test code = 713-8) 0.0 % BASO % (test code = 706-2) 0.3 % GRAN MAT x10^3(ANC) (test code = 8616026644) 8.89 10*3/uL 1.88-7.09 H IMM GRAN x10^3 (test code = 2583043626) 0.05 10*3/uL 0.00-0.06 LYMPH x10^3 (test code = 731-0) 1.72 10*3/uL 1.32-3.29 MONO x10^3 (test code = 742-7) 1.67 10*3/uL 0.33-0.92 H EOS x10^3 (test code = 711-2) <0.03 0.03-0.39 L BASO x10^3 (test code = 704-7) 0.04 10*3/uL 0.01-0.07 HYPERSEG NEUTS (test code = 765-8) Present See_Comment A [Automated messa ge] The system which generated this result transmitted reference range: (none). The reference range was not used to interpret this result as normal/abnormal. REACT LYMPHS (test code = 0554765449) Rare Lab Interpretation (test code = 10050-3) [facility] [id number] 10:01:56* Test Item Value Reference Range Interpretation Comme nts MAGNESIUM (test code = 2127883884) 2.0 mg/dL 1.7-2.4 Lab Interpretation (test cod e = 73140-6) Normal [facility] CenterCOMP. METABOLIC PANEL (06629)2020-10-10 10:01:36* Test Item Value Reference Range Interpretation Comme nts NA (test code = 2232413456) 139 mmol/L 135-145 K (test code = 3320322807) 3.3 mmol/L 3.5-5.0 L CL (test code = 2706552002) 107 mmol/L 98-108 CO2 TOTAL (test code = 7533173566) 28 mmol/L 23-31 AGAP (test code = 7436436442) 2-16 BUN (test code = 7630306279) 14 mg/dL 7-23 GLUCOSE (test code = 0385182182) 166 mg/dL 70-110 H CREATININE (test code = 3027001310) 0.39 mg/dL 0.50-1.04 L TOTAL BILI (test code = 0571322790) 0.3 mg/dL 0.1-1.1 CALCIUM (test code = 7804748919) 8.7 mg/dL 8.6-10.6 T PROTEIN (test code = 9309703396) 5.7 g/dL 6.3-8.2 L ALBUMIN (test code = 7013069268) 3.3 g/dL 3.5-5.0 L ALK PHOS (test code = 0796856210) 87 U/L 34-122 ALTv (test code = 1742-6) 11 U/L 5-35 AST(SGOT) (test code = 2387916845) 37 U/L 13-40 eGFR (test code = 2509701173) mL/min/1.73m2 HANNAH (test code = HANNAH) Association of Glomerular Filtration Rate (GFR) and Staging of Kidney Disease* + --+ --+ ------+| GFR (mL/min/1.73 m2) ?| With Kidney Damage ?| ?Without Kidney Damage+ --------+ --------+ +| ?>90 ?| ?Stage one ?| ? Normal ?+ ---+ ---+ -------+| ?60-89 ?| ?Stage two ?| ? Decreased GFR ? + --+ --+ ------+| ?30-59 ?| ?Stage three ?| ? Stage three ? + --+ --+ ------+| ?15-29 ?| ?Stage four ? | ? Stage four ?+ ---+ ---+ -------+| ?<15 (or dialysis) ? ?| ?Stage five ? | ? Stage five ?+ ---+ ---+ -------+ *Each stage assumes the associated GFR level has been in effect for at least three months. ?Stages 1 to 5, with or without kidney disease, indicate chronic kidney disease. Notes: Determination of stages one and two (with eGFR >59mL/min/1.73 m2) requires estimation of kidney damage for at least three months as defined by structural or functional abnormalities of the kidney, manifested by either:Pathological abnormalities or Markers of kidney damage (including abnormalities in the composition of the blood or urine or abnormalities in imaging tests). Lab Interpretation (test code = 72749-7) [id number] 21:07:24* Test Item Value Reference Range Interpretation Comme nts VIT D 25OH (test code = 62521-8) <13 25-80 L HANNAH (test code = HANNAH) Deficiency: <20 ng/mLInsufficiency: 20-24 ng/mLOptimal: 25-80 ng/mL Lab Interpretation (test code = 37663-7) [facility], [id number] 19:27:09* Test Item Value Reference Range Interpretation Comme nts VIT B12 (test code = 7902744515) 393 pg/mL 240-930 HANNAH (test code = HANNAH) Biotin has been reported to cause a positive bias, interpret results relative to patient's use of biotin. Lab Interpretation (test code = 16113-1) [facility] 17:01:54* Test Item Value Reference Range Interpretation Comments Procalcitonin (test code = 7417672697) <0.02 See_Comment [Automated message] The system which generated this result transmitted reference range: <0.07 ng/mL. The reference range was not used to interpret this result as normal/abnormal . HANNAH (test code = HANNAH) INTERPRETATION OF PROCALCITONIN RESULTS IN ADULTS >= 18 YEARS OF AGE Initiation and discontinuation of antibiotics on patients with suspected or confirmed Lower Respiratory Tract Infection in Adults >= 18 years of age. + +------ + ----+ +|Procalcit onin |Interpretation ?|Antibiotic ? ? |Considerations ? |ng/mL ? | ?|recommendation | ? + +------ + ----+ +| <0.1 ? | Bacterial ? ? ?| Strongly ? ? ?| ? | ?| infection very | discouraged ? | Overruling: ? | ?| unlikely ? ? ? | ? | ? Clinically unstable ? ? ? + +------ + ----+ ? High risk for adverse ? ? | <0.25 ?| Bacterial ? ? ?| Discouraged ? | ? outcome ? | ?| infection ? ? ?| ? | ? SEE IMPORTANT NOTE ?| ?| unlikely ? ? ? | ? | ? + +------ + ----+ +| >=0.25 ? ? ? | Bacterial ? ? ?| Encouraged ? ?| ? | ?| infection ? ? ?| ? | ? | ?| likely ? | ? | Consider treatment failure ?+ +----- + -----+ if levels does not decrease | >0.5 ? | Bacterial ? ? ?| Strongly ? ? ?| appropriately ? | ?| infection very | encouraged ? ?| ? | ?| likely ? | ? | ? + +------ + ----+ + Discontinuation of antibiotics in high-acuity patients with suspected or confirmed sepsis in Adults >= 18 years of age. + +------ + ----+ +|Procalcit onin |Interpretation ?|Antibiotic ? ? |Considerations ? |ng/mL ? | ?|recommendation | ? + +------ + ----+ +| <0.25 ?| Bacterial ? ? ?| Strongly ? ? ?| ? | ?| infection very | discouraged ? | Overruling: ? | ?| unlikely ? ? ? | ? | ? Clinically unstable ? ? ? + +------ + ----+ ? High risk for adverse ? ? | <0.5 or drop | Bacterial ? ? ?| Discouraged ? | ? outcome ? | >80% from ? ?| infection ? ? ?| ? | ? SEE IMPORTANT NOTE ?| highest PCT ?| unlikely ? ? ? | ? | ? | level ?| ?| ? | ? + +------ + ----+ +| >=0.5 ?| Bacterial ? ? ?| Encouraged ? ?| ? | ?| infection ? ? ?| ? | ? | ?| likely ? | ? | Consider treatment failure ?+ +----- + -----+ if levels does not decrease | >1.0 ? | Bacterial ? ? ?| Strongly ? ? ?| appropriately ? | ?| infection very | encouraged ? ?| ? | ?| likely ? | ? | ? + +------ + ----+ + Percentage of drop of Procalcitonin calculation for Discontinuation of antibiotics in high-acuity patients with suspected or confirmed sepsis in Adults >= 18 years of age. ? Procalcitonin highest{}-Procalcitoni n current{}Delta Procalcitonin = ___ x100% ? Procalcitonin current {} IMPORTANT NOTE: Procalcitonin may be elevated without bacterial infection by physiologic stress related to trauma, chaves, chronic dialysis, metastatic cancer, surgery in the past seven days, malaria, some fungal infections, and some forms of vasculitis. The interpretation algorithm may not apply to patients with immunosuppression (equivalent of >10 mg of prednisone daily), HIV with CD4 cell count < 350 cells/mm3, active malignancy on systemic chemotherapy, solid organ transplant or hematopoietic stem cell transplantation, or hospital acquired pneumonia. Additionally, some clinical trials of procalcitonin have excluded patients with shock requiring vasopressor use, acute respiratory failure requiring mechanical ventilation, or those with known lung abscess/empyema. For further information please refer to:[email or web address] p Lab Interpretation (test code = 76765-8) [facility] [id number] 14:42:061. ?No evidence of pulmonary embolism. 2. ?Diffuse upper lobe predominant emphysematous changes. Solid andspiculated pulmonary nodule measures up to 1.2 cm in the right middle lobe.Recommend PET/CT, tissue sampling, or close follow up in 3 months. 3. ?Bilateral calcified hilar lymph nodes, likely sequela of priorgranulomatous disease. Preliminary Report Dictated by Resident: Nestor Mcclain MD., have reviewed this study and agree with theabove report.PROCEDURE: CT ANGIO CHEST WITH CONTRAST - PE PROTOCOL CLINICAL INDICATION: PE suspected, high pretest prob ? COMPARISON: Chest radiograph 09-12-2017. DOSE: 65 mGy-cm TECHNIQUE AND FINDINGS: A helical CT scan was performed and reconstructedusing 1.25 mm slice thickness from the lung bases through the apices afterthe uncomplicated administration of 100 cc of intravenous Omnipaquecontrast. Sagittal and coronal reconstructions, and axial maximum intensityprojections were generated and reviewed to further define anatomy andpossible pathology. (DFOV = 31.7 cm) FINDINGS: PULMONARY ARTERIES: Technically adequate enhancement of the pulmonaryarteries reveals no pulmonary embolism. LINES AND TUBES: None LOWER NECK/THYROID: The visualized portions of thyroid gland are normal. LUNGS: Diffuse upper lobe predominant centrilobular em physematous changes.A spiculated solid pulmonary nodule measures up to 1.2 cm in the rightmiddle lobe (5:70, 9:82). Left upper lobe calcified granuloma measures upto 0.5 cm. PLEURA: No pleural effusion or pneumothorax. CENTRAL AIRWAY: No bronchiectasis, mucus plugging, or bronchial wallthickening. MEDIASTINUM: Calcified hilar lymph nodes likely represent sequela of priorgranulomatous disease. Normal cardiac morphology. No pericardial effusion. AORTA AND GREAT VESSELS: The visualized portions ofthe aorta are normal incaliber. BONES AND SOFT TISSUES: No suspicious lytic or blastic skeletal lesions. VISUALIZED UPPER ABDOMEN: Unremarkable. [facility], Radiant Results Inft User - 10/09/2020 9:43 AM CD TPROCEDURE: CT ANGIO CHEST WITH CONTRAST - PE PROTOCOLCLINICAL INDICATION: PE suspected, high pretest prob COMPARISON: Chest radiograph 09-12-2017.DOSE: 65 mGy-cmTECHNIQUE AND FINDINGS: A helical CT scan was performed and reconstructedusing 1.25 mm slice thickness from the lung bases through the apic es afterthe uncomplicated administration of 100 cc of intravenous Omnipaquecontrast. Sagittal and coronal reconstructions, and axial maximum intensityprojections were generated and reviewed to further define anatomy andpossible pathology. (DFOV = 31.7 cm)FINDINGS: PULMONARY ARTERIES: Technically adequate enhancement of the pulmonaryarteries reveals no pulmonary embolism.LINES AND TUBES: NoneLOWERNECK/THYROID: The visualized portions of thyroid gland are normal.LUNGS: Diffuse upper lobe predominant centrilobular emphysematous changes.A spiculated solid pulmonary nodule measures up to 1.2 cm in the rightmiddle lobe (5:70, 9:82). Left upper lobe calcified granuloma measures upto 0.5 cm.PLEURA: No pleural effusion or pneumothorax.CENTRAL AIRWAY: No bronchiectasis, mucus plugging, or bronchial wallthickening.MEDIASTINUM: Calcified hilar lymph nodes likely represent sequela of priorgranulomatous disease. Normal cardiac morphology. No pericardial effusion. AORTA AND GREAT VESSELS: The visualized portions of the aorta are normal incaliber.BONES AND SOFT TISSUES: No suspicious lytic or blastic skeletal lesions.VISUALIZED UPPER ABDOMEN: Unremarkable.IMPRESSION1. No evidence of pulmonary embolism.2. Diffuse upper lobe predominant emphysematous changes. Solid andspiculated pulmonary nodulemeasures up to 1.2 cm in the right middle lobe.Recommend PET/CT, tissue sampling, or close follow up in 3 months.3. Bilateral calcified hilar lymph nodes, likely sequela of priorgranulomatous disease.Preliminary Report Dictated by Resident: Nguyen Bliss MD., have reviewed this study and agree with theabove report.[facility] 2020-10-09 14:40:22* Test Item Value Reference Range Interpretation Comme [facility] POCT Creatinine (test code = 7694991994) 0.6 mg/dL 0.5-1.1 Lab Interpretation (test cod e = 10178-1) Normal [facility] CenterXR CHEST 1 [id number] 14:16:52No acute cardiopulmonary abnormality. Moderate emphysematous changes the lungs with an unchanged left-sided smallpleural effusion and/or pleural thickening and associated elevation of theipsilateral hemidiaphragm. Preliminary Report Dictated by Resident: Giancarlo Flood MD., have reviewed this study and agree with theabove report.EXAM: XR CHEST 1 VW HISTORY: hypoxia COMPARISON: Chest x-ray dated 09/12/2018. TECHNIQUE: ?Single ?PA view radiograph of the chest. FINDINGS: The lungs are overexpanded and hyperlucent with by manual biapical scaringand scattered areas of mild interstitial pulmonary fibrosis in the lowerlung zones. Blunting of the left costophrenic angle may be due to a smallpleural effusion and/or pleural thickening with associated elevation of theipsilateral hemidiaphragm, unchanged. No focal consolidation orpneumothorax is identified. The aortic arch is partially calcified. The heart size is normal. No acute osseous abnormality is identified. [facility], Radiant Results Inft User - 10/09/2020 9:18 AM CDTEXAM: XR CHEST 1 VWHISTORY: hypoxia COMPARISON:Chest x-ray dated 09/12/2018.TECHNIQUE: Single PA view radiograph of the chest.FINDINGS:The lungs are overexpanded and hyperlucent with by manual biapical scaringand scattered areas of mild interstitial pulmonary fibrosis in the lowerlung zones. Blunting of the left costophrenic angle may be due to a smallpleural effusion and/or pleural thickening with associated elevation of theipsilateral hemidiaphragm, unchanged. No focal consolidation orpneumothorax is identified.The aortic arch is partially calcified. The heart size is normal.No acute osseous abnormality is identified.IMPRESSIONNo acute cardiopulmonary abnormality.Moderate emphysematous changes the lungs with an unchanged left-sided smallpleural effusion and/or pleural thickening and associated elevation of theipsilateral hemidiaphragm .Preliminary Report Dictated by Resident: Steve Leal, Giancarlo Rashid MD., have reviewed this study and agree with theabove report. [facility] CenterLIPID PANEL (24446)(TOTAL CHOLESTEROL, TRIGLYCERIDES, HDL)2020-10-09 11:01:02* Test Item Value Reference Range Interpretation Comme nts CHOL (test code = 0693304623) 197 mg/dL 120-200 HDL (test code = 5909707643) 119 mg/dL >50 HDLC RATIO (test code = 2589702431) See_Comment [[employer]leaf] The system which generated this result transmitted reference range: <=4.5. The reference range was not used to interpret this result as normal/abnormal. TRIG (test code = 8320007598) 62 mg/dL 30-170 LDL CHOL (test code = 13071-2) 66 mg/dL See_Comment [[employer]leaf] The system which generated this result transmitted reference range: <=160. The reference range was not used to interpret this result as normal/abnormal. VLDL (test code = 0503968379) 12 mg/dL 5-60 Lab Interpretation (test code = 68315-8) Normal [facility] CenterSEDIMENTATION [id number] 10:57:54* Test Item Value Reference Range Interpretation Comme nts ESR (test code = 5963604976) See_Comment [Automated [employer]] The system which generated this result transmitted reference range: 0 - 20 mm/HR. The reference range was not used to interpret this result as normal/abnormal. Lab Interpretation (test code = 78241-2) Normal [facility] CenterGLYCOSYLATED HEMOGLOBIN (A1C)2020-10-09 10:27:02* Test Item Value Reference Range Interpretation Comme nts HGB A1C (test code = 4548-4) 5.5 % 4.0-6.0 HANNAH (test code = HANNAH) %A1C (NGSP) Interpretation (ADA)4.8-5.6 ? ? Normal or (Non-Diabetic Range)5.7-6.4 ? ? Increased Risk (Pre-Diabetic)>6.5 ?Diabetes Indicated Lab Interpretation (test code = 08808-0) Normal [facility] CenterLactic Acid Whole [id number] 09:36:34* Test Item Value Reference Range Interpretation Comme nts LACTIC ACID (test code = 5815088622) 0.92 mmol/L 0.50-2.20 Lab Interpretation (test cod e = 58958-7) [facility] [id number] 09:33:23 * Test Item Value Reference Range Interpretation Comme nts TSH (test code = 3787285504) See_Comment [Automated [employer]] The system which generated this result transmitted reference range: 0.45 - 4.70 mIU/L. The reference range was not used to interpret this result as normal/abnormal. Lab Interpretation (test code = 59960-8) Normal [facility] CenterPHOSPHORUS2021-04-12 09:02:43* Test Item Value Reference Range Interpretation Comme nts PHOSPHORUS (test code = 7389116355) 4.5 mg/dL 2.5-5.0 Lab Interpretation (test cod e = 32120-5) Normal [facility] CenterCREATINE [id number] 09:02:23* Test Item Value Reference Range Interpretation Comme nts CK (test code = 0281266098) 55 U/L 33-194 Lab Interpretation (test cod e = 08341-6) Normal [facility] CenterETHANOL2021-04-12 05:18:06* Test Item Value Reference Range Interpretation Comme nts ALCOHOL (test code = 7470396946) 89 mg/dL HANNAH (test code = HANNAH) <10 Pnxoabgz01-367 Toxic>100 Depression of ABALONE FISHERMAN>400 Fatalities Reported [facility] CenterN-TERMINAL [id number] 04:40:01* Test Item Value Reference Range Interpretation Comme nts NT-proBNP (test code = 9481004970) 51 pg/mL See_Comment [Automated message] The system which generated this result transmitted reference range: <=450. The reference range was not used to interpret this result as normal/abnormal. HANNAH (test code = HANNAH) Biotin has been reported to cause a negative bias, interpret results relative to patient's use of biotin. Lab Interpretation (test code = 27823-7) Normal [facility] CenterCOMP. METABOLIC PANEL (93238)2020-10-09 04:40:01* Test Item Value Reference Range Interpretation Comme nts NA (test code = 0966275555) 139 mmol/L 135-145 K (test code = 5131285055) 3.4 mmol/L 3.5-5.0 L CL (test code = 5233103229) 101 mmol/L 98-108 CO2 TOTAL (test code = 9639239116) 28 mmol/L 23-31 AGAP (test code = 5979788734) 2-16 BUN (test code = 9235882930) 5 mg/dL 7-23 L GLUCOSE (test code = 1333990090) 138 mg/dL 70-110 H CREATININE (test code = 6183580897) 0.51 mg/dL 0.50-1.04 TOTAL BILI (test code = 7694332321) 0.3 mg/dL 0.1-1.1 CALCIUM (test code = 4901773063) 8.8 mg/dL 8.6-10.6 T PROTEIN (test code = 7651056830) 7.3 g/dL 6.3-8.2 ALBUMIN (test code = 8549725859) 4.5 g/dL 3.5-5.0 ALK PHOS (test code = 3011872465) 95 U/L 34-122 ALTv (test code = 1742-6) 15 U/L 5-35 AST(SGOT) (test code = 9414025935) 36 U/L 13-40 eGFR (test code = 5113361348) mL/min/1.73m2 HANNAH (test code = HANNAH) Association of Glomerular Filtration Rate (GFR) and Staging of Kidney Disease* + --+ --+ ------+| GFR (mL/min/1.73 m2) ?| With Kidney Damage ?| ?Without Kidney Damage+ --------+ --------+ +| ?>90 ?| ?Stage one ?| ? Normal ?+ ---+ ---+ -------+| ?60-89 ?| ?Stage two ?| ? Decreased GFR ? + --+ --+ ------+| ?30-59 ?| ?Stage three ?| ? Stage three ? + --+ --+ ------+| ?15-29 ?| ?Stage four ? | ? Stage four ?+ ---+ ---+ -------+| ?<15 (or dialysis) ? ?| ?Stage five ? | ? Stage five ?+ ---+ ---+ -------+ *Each stage assumes the associated GFR level has been in effect for at least three months. ?Stages 1 to 5, with or without kidney disease, indicate chronic kidney disease. Notes: Determination of stages one and two (with eGFR >59mL/min/1.73 m2) requires estimation of kidney damage for at least three months as defined by structural or functional abnormalities of the kidney, manifested by either:Pathological abnormalities or Markers of kidney damage (including abnormalities in the composition of the blood or urine or abnormalities in imaging tests). Lab Interpretation (test code = 65634-0) Abnormal [facility] CenterTROPONIN [id number] 04:40:01* Test Item Value Reference Range Interpretation Comme nts TROPONIN I (test code = 8460990339) 0.001 ng/mL See_Comment [Automated message] The system which generated this result transmitted reference range: <=0.034. The reference range was not used to interpret this result as normal/abnormal. HANNAH (test code = HANNAH) Equal or Less than 0.034 ng/ml---Normal ?Note: Cardiac troponin begins to rise 3-4 hours after the onset of ischemia. Repeat in 4-6 hours if the sample was drawn within 3-4 hours of the onset of the symptom and found normal. Between 0.035 and 0.120 ng/mL--- Borderline. Questionable myocardial injury or necrosis ? ?Note: Serial measurement may be necessary to confirm or exclude the diagnosis of myocardial injury or necrosis; Clinical correlation (symptoms, EKGs, imaging studies, and others) required; Repeat in 4-6 hours if clinically indicated. ? Equal or Higher than 0.121 ng/mL---Abnormal. Myocardial Injury or Necrosis Likely ? Biotin has been reported to cause a negative bias, interpret results relative to patient's use of biotin. ? Lab Interpretation (test code = 51068-5) Normal [facility] CenterMAGNESIUM2021-04-12 04:40:01* Test Item Value Reference Range Interpretation Comme [facility] MAGNESIUM (test code = 6078772726) 1.8 mg/dL 1.7-2.4 Lab Interpretation (test cod e = 67569-6) Normal [facility] CenterACTIVATED PARTIAL THRMPLAS [id number] 04:35:02* Test Item Value Reference Range Interpretation Comme [facility] APTT Patient (test code = 3173-2) See_Comment [Automated message] The system which generated this result transmitted reference range: 23 - 38 Seconds. The reference range was not used to interpret this result as normal/abnormal. HANNAH (test code = HANNAH) The [facility] patient population mean normal value for aPTT is 30 seconds. Lab Interpretation (test code = 56055-8) Normal [facility] CenterPROTHROMBIN TIME / [id number] 04:33:01* Test Item Value Reference Range Interpretation Comme [facility] PROTIME PATIENT (test code = 5964-2) See_Comment [Automated messa ge] The system which generated this result transmitted reference range: 12.0 - 14.7 Seconds. The reference range was not used to interpret this result as normal/abnormal. INR (test code = 6301-6) Normal INR <1.1; Warfarin Therapeutic range 2.0 to 3.0 or 2.5 to 3.5, depending upon the indications. Lab Interpretation (test code = 25652-8) Normal [facility] CenterADC,CLC OR [facility] ONLY - INFLUENZA A & B DIRECT [id number] 04:32:51* Test Item Value Reference Range Interpretation Comme nts Influenza A (test code = 41804-9) Negative Negative Influenza B (test code = 69892-7) Negative Negative Lab Interpretation (test cod e = 00271-5) Normal [facility] CenterURINALYSIS2021-04-12 04:31:01* Test Item Value Reference Range Interpretation Comme nts APPEARANCE (test code = 9200363299) Clear Clear COLOR (test code = 1724192507) Straw Yellow A PH (test code = 7042913886) 4.8-8.0 SP GRAVITY (test code = 5613576209) 1.003-1.030 GLU U QUAL (test code = 8072634312) Normal Normal BLOOD (test code = 2162721504) 1+ Negative A KETONES (test code = 2462958715) Negative Negative PROTEIN (test code = 2887-8) Negative Negative UROBILIN (test code = 3352793778) Normal Normal BILIRUBIN (test code = 9265557293) Negative Negative NITRITE (test code = 2931581651) Negative Negative LEUK ALONDRA (test code = 0852202057) Negative Negative RBC/HPF (test code = 9247103246) See_Comment [Automated Funnelya ge] The system which generated this result transmitted reference range: 0 - 3 HPF. The reference range was not used to interpret this result as normal/abnormal. WBC/HPF (test code = 2127599195) See_Comment [Automated Funnelya ge] The system which generated this result transmitted reference range: 0 - 5 HPF. The reference range was not used to interpret this result as normal/abnormal. BACTERIA (test code = 9953887369) Few Negative A Lab Interpretation (test code = 08871-2) Abnormal [facility] CenterAC PANEL 21 + LACTIC [id number] 04:26:40* Test Item Value Reference Range Interpretation Comme nts PH (test code = 3377845572) 7.32-7.42 PCO2 BRIAN (test code = 5404274641) See_Comment [Automated messa ge] The system which generated this result transmitted reference range: 41 - 51 mmHg. The reference range was not used to interpret this result as normal/abnormal. PO2 BRIAN (test code = 4607322846) See_Comment H [Automated messa ge] The system which generated this result transmitted reference range: 25 - 40 mmHg. The reference range was not used to interpret this result as normal/abnormal. HCO3 BRIAN (test code = 5793647988) See_Comment [Automated messa ge] The system which generated this result transmitted reference range: 24 - 28 mEq/L. The reference range was not used to interpret this result as normal/abnormal. AC VBE(BEAKER) (test code = 8357363223) mEq/L THB BRIAN (test code = 8364334008) 16.4 g/dL 12.0-16.0 H %O2HB BRIAN (test code = 8810846970) 78.1 % 52.0-63.0 H %COHB BRIAN (test code = 9772536645) 3.9 % 0.0-1.5 H %METHB BRIAN (test code = 1145132430) 0.3 % 0.4-1.5 L VOL%O2 BRIAN (test code = 5177068490) 17.9 % 6.0-12.0 H NA (test code = 8233826026) 141 mmol/L 135-145 K+ (test code = 9316402542) 3.5 mmol/L 3.5-5.0 AC CA IONZ (test code = 3201403210) 4.30 mg/dL 4.50-5.30 L GLUCOSE (test code = 1026739355) 134 mg/dL 70-110 H LACTIC ACID (test code = 9947652776) 2.21 mmol/L 0.50-2.20 H Lab Interpretation (test code = 37411-2) Abnormal [facility] CenterCOVID-19 (ID NOW RAPID TESTING)2020-10-09 04:25:19* Test Item Value Reference Range Interpretation Comme nts SARS-CoV-2 Rapid ID NOW (test code = 77208-4) Not Detected Not Detected HANNAH (test code = HANNAH) ID NOW COVID-19 As say is an isothermal nucleic acid amplification test intended for the qualitative detection of nucleic acid from SARS-CoV-2 viral RNA in nasopharyngeal (T RAIL TURNER) specimens. It is used under Emergency Use Authorization (EUA) by FDA. The limit of detection (LOD) of the assay is 125 Genome Equivalents/mL. A positive result is indicative of the presence of SARS-CoV-2 RNA. ?Clinical correlation with patient history and other diagnostic information is necessary to determine patient infection status. A negative (Not Detected) result does not preclude SARS-CoV-2 infection. In patients with clinical symptoms and other tests that are consistent with SARS-CoV-2 infection, negative results should be treated as presumptive negative and a new specimen should be tested with alternative PCR molecular test. Invalid: Please collect a new specimen for repeat patient testing if clinically indicated. Lab Interpretation (test code = 69194-0) Normal [facility] WITH [id number] 04:07:01* Test Item Value Reference Range Interpretation Comme nts WBC (test code = 6690-2) See_Comment [Automated Funnelya ge] The system which generated this result transmitted reference range: 4.30 - 11.10 10*3/?L. The reference range was not used to interpret this result as normal/abnormal. RBC (test code = 789-8) See_Comment [Automated Funnelya ge] The system which generated this result transmitted reference range: 3.93 - 5.25 10*6/?L. The reference range was not used to interpret this result as normal/abnormal. HGB (test code = 718-7) 14.8 g/dL 11.6-15.0 HCT (test code = 4544-3) 43.2 % 35.7-45.2 MCV (test code = 787-2) 98.0 fL 80.6-95.5 H MCH (test code = 785-6) 33.6 pg 25.9-32.8 H MCHC (test code = 786-4) 34.3 g/dL 31.6-35.1 RDW-SD (test code = 77017-4) 49.0 fL 39.0-49.9 RDW-CV (test code = 788-0) 13.5 % 12.0-15.5 PLT (test code = 777-3) See_Comment H [Automated Funnelya ge] The system which generated this result transmitted reference range: 166 - 358 10*3/?L. The reference range was not used to interpret this result as normal/abnormal. MPV (test code = 69515-4) 9.5 fL 9.5-12.9 NRBC/100 WBC (test code = 1986491134) See_Comment [Automated me ssage] The system which generated this result transmitted reference range: 0.0 - 10.0 /100 WBCs. The reference range was not used to interpret this result as normal/abnormal. NRBC x10^3 (test code = 0366611316) <0.01 See_Comment [Automated messa ge] The system which generated this result transmitted reference range: 10*3/?L. The reference range was not used to interpret this result as normal/abnormal. GRAN MAT (NEUT) % (test code = 770-8) 46.5 % IMM GRAN % (test code = 8548494402) 0.30 % LYMPH % (test code = 736-9) 43.1 % MONO % (test code = 5905-5) 7.7 % EOS % (test code = 713-8) 1.7 % BASO % (test code = 706-2) 0.7 % GRAN MAT x10^3(ANC) (test code = 8483386120) 4.13 10*3/uL 1.88-7.09 IMM GRAN x10^3 (test code = 8407365327) 0.03 10*3/uL 0.00-0.06 LYMPH x10^3 (test code = 731-0) 3.82 10*3/uL 1.32-3.29 H MONO x10^3 (test code = 742-7) 0.68 10*3/uL 0.33-0.92 EOS x10^3 (test code = 711-2) 0.15 10*3/uL 0.03-0.39 BASO x10^3 (test code = 704-7) 0.06 10*3/uL 0.01-0.07 Lab Interpretation (test code = 46828-1) Abnormal [facility] Consult Notes Date/Time Note Provider Source 2023-07-11 21:00:31 Department of Internal Medicine Consult Consultation requested by: Surgery Requesting Physician: Melody Service: Internal Medicine Reason for Consultation: Medical Management Date of Service: 07/11/2023 CHIEF COMPLAINT: We were asked to see this patient to give my opinion regarding Elias Mansfield, 78 year old, female who presents with left breast palpable lesion. History of Present Illness 78 yo female with pmh of HLD, COPD who comes in due to left breast palpable lesion due to elective left simple mastectomy. Post-operatively, patient notes that she is not in pain. She denies any nausea or vomiting. She states that she it is tolerating her diet. PAST MEDICAL HISTORY Past Medical History: Diagnosis Date Chronic alcohol abuse Dyslipidemia Emphysema lung Smoker Past Surgical History: Procedure Laterality Date SALPINGECTOMY Family History Problem Relation Age of Onset Coronary Heart Disease Mother Allergies: Codeine MEDICATIONS Hospital Medications: Current Facility-Administered Medications Medication Dose Route Frequency Last Rate Last Admin acetaminophen (TYLENOL) tablet 1,000 mg 1,000 mg Oral TID 1,000 mg at 07/11/232032 atorvastatin (LIPITOR) tablet 20 mg 20 mg Oral QHS 20 mg at 07/11/232033 budesonide-formoteroL (SYMBICORT) 160-4.5 mcg/actuation inhaler 2 Puff 2 Puff Inhalation BID 2 Puff at 07/11/237 [START ON 07/12/2023] enoxaparin (LOVENOX) injection 40 mg 40 mg Subcutaneous DAILY gabapentin (NEURONTIN) capsule 300 mg 300 mg Oral TID 300 mg at 07/11/232033 morpHINE (2 mg/mL) injection 2 mg 2 mg Slow IV Push Q2HPRN 2 mg at 07/11/23 1527 ondansetron (ZOFRAN (PF)) injection 4 mg 4 mg Slow IV Push Q6HPRN [START ON 07/12/2023] polyethylene glycol 3350 powder 17 g 17 g Oral DAILY traMADoL (ULTRAM) tablet 50 mg 50 mg Oral Q6HPRN I attest that the foregoing medication list in the medical record is true, accurate and complete to the best of my knowledge. SOCIAL HISTORY Social History Tobacco Use Smoking Status Every Day Packs/day: 0.50 Years: 50.00 Additional pack years: 0.00 Total pack years: 25.00 Types: Cigarettes Smokeless Tobacco Never Social History Substance and Sexual Activity Alcohol Use Never Comment: quit 2019 Social History Substance and Sexual Activity Drug Use Not Currently REVIEW OF SYSTEMS Review of Systems Constitutional: Negative. HENT: Negative. Eyes: Negative. Respiratory: Positive for shortness of breath (nonproductive). Negative for apnea, cough, choking, chest tightness, wheezing and stridor. Breasts: Negative. Cardiovascular: Negative. Gastrointestinal: Negative. Genitourinary: Negative. Musculoskeletal: Positive for back pain. Negative for arthralgias, gait problem, joint swelling and myalgias. Skin: Negative. Neurological: Negative. Psychiatric/Behavioral: Negative. Endocrine: Endocrine negative PHYSICAL EXAMINATION Physical Exam Vitals and nursing note reviewed. Constitutional: General: She is not in acute distress. Appearance: Normal appearance. She is not ill-appearing, toxic-appearing or diaphoretic. HENT: Head: Normocephalic and atraumatic. Right Ear: External ear normal. Left Ear: External ear normal. Nose: Nose normal. No congestion. Mouth/Throat: Mouth: Mucous membranes are moist. Pharynx: No oropharyngeal exudate or posterior oropharyngeal erythema. Eyes: General: No scleral icterus. Extraocular Movements: Extraocular movements intact. Conjunctiva/sclera: Conjunctivae normal. Pupils: Pupils are equal, round, and reactive to light. Cardiovascular: Rate and Rhythm: Normal rate and regular rhythm. Heart sounds: No murmur heard. No friction rub. No gallop. Comments: Her chest is wrapped. Pulmonary: Effort: Pulmonary effort is normal. No respiratory distress. Breath sounds: Normal breath sounds. No wheezing or rales. Chest: Chest wall: No tenderness. Abdominal: General: Abdomen is flat. Bowel sounds are normal. There is no distension. Palpations: Abdomen is soft. Tenderness: There is no abdominal tenderness. There is no guarding. Musculoskeletal: Cervical back: Normal range of motion and neck supple. Right lower leg: No edema. Left lower leg: No edema. Skin: General: Skin is warm and dry. Neurological: Mental Status: She is alert. Psychiatric: Mood and Affect: Mood normal. Behavior: Behavior normal. Thought Content: Thought content normal. Judgment: Judgment normal. LABORATORY Reviewed RADIOLOGY: Reviewed ASSESSMENT and PLAN Elias Mansfield is a 78 year old female with PMH as listed above, consulted Internal medicine for medical management. Left breast palpable lesion: s/p left mastectomy: -- Will defer to primary team -- Nausea and pain control COPD -- Duoneb as scheduled/prn -- Oxygen supplementation as needed HLD: -- Will give Lipitor 4. Current smoker: spoke for greater than 3 minutes about smoking cessation. At this time, patient refuse smoking cessation therapy. [facility] STAFF [facility] - Health History and Physical Notes Date/Time Note Provider Source 2023-07-11 10:03:12 H&P Update 07/11/2023 I have seen and examined the patient. There have been no interval changes in the history or physical exam since the last clinic visit. The last clinic note is current and has been linked below. The surgical plan is for a left simple mastectomy with sentinel lymph node biopsy and all other indicated procedures. The consent is located in the chart and is current. The site was marked in the pre operative area. Corrina Lazo DO General Surgery PGY-3 [facility] Associated attestation - Maximiliano Burrows MD - 07/11/2023 10:21 AM [facility] I saw and examined this patient. I discussed the plan with the resident team including Dr. Lazo. Maximiliano Burrows MD Surgical Oncology Source Note - Flaco Almanza MD - 06/16/2023 11:30 AM [facility] General Surgery Clinic 06/16/2023 HPI: This is a 78-year-old female who presents to the [facility] surgical oncology clinic for follow up of a left breast palpable lesion. Her presenting history is as below: Overall the patient feels well. She first noticed a left breast mass in February of this year. Nontender. No nipple discharge. No skin changes although does notice some small area of dry skin near her left nipple. No recent changes in her weight. No constitutional changes. Able to tolerate a diet. No hematochezia or hematuria. No GI complaints. No neurologic complaints. No cardiovascular complaints. No other complaints. She underwent outside imaging at [facility] on 2023 (only report available). This noted heterogeneous breast parenchyma and vague hypoechoic tissue containing small calcifications at the site of the palpable mass. Per patient report she also underwent US of her nodes. 06/16/23: She underwent glenn/US on 06/04. She was found to have a 13 mm irregular heterogeneous mass with associated calcifications at the 2 o'clock position, 1 cm from the nipple with mammographic correlate. Moderate suspicion for malignancy. BI-RADS 4B. No axillary adenopathy was found. She consequently underwent US guided biopsy with COIL placement. Pathology revealed: IDC. Poor Dif. G3. ER+, MN-, KI67 40%, HER2+. ([facility] pathology). Today, she is feeling well. Reports no changes in her overall health or in the breast Breast History: No prior breast biopsies. Past medical history: COPD, dyslipidemia, dyspnea and palpitations. Past surgical history: - Family history: She reports that her sister of cervical cancer (patient unable to recall age of ), and she has a niece who of breast cancer while in her 40s. Social/Functional: Smoker for 25 years. Currently smokes .5 packs a day. Reports that she quit drinking alcohol which has contributed to weight loss over the past 2-3 years. She reports being at a stable weight now with no recent changes. She currently lives at home with her brother and reports being active around the house. Medications: Simvastatin 40 mg tablet, PO QD, for HLD Advair 250-50mcg/dose, 1 puff BID, for COPD Exam: BP (!) 157/79 | Pulse 97 | Temp 36.1 ?C (97 ?F) (Temporal Artery) | Resp 18 | Ht 1.499 m (4' 11") | Wt 35.4 kg (78 lb) | SpO2 95% | BMI 15.75 kg/m? Well appearing, no acute distress Symmetric chest rise, no respiratory distress Regular rate Breast exam deferred given recent exam A/P: This is a 78-year-old female who presents with a palpable left lesion now found to have a 13mm IDC. G3. ER+. MN-. HER2+. T1c. IA. We had an extensive discussion regarding the patient's diagnosis, natural disease progression, and treatment options available. We directly reviewed the imaging with the patient. We discussed the role of multimodality treatment including the use of surgery, radiotherapy, and adjunct systemic therapies including chemotherapy and hormone therapy. For management of her primary lesion we discussed the different options available including segmental mastectomy versus mastectomy. We discussed the role of sentinel lymph node sampling in the treatment and prognostication of breast cancer. She would like more time to consider the decision between mastectomy vs. BCT. TB presentation Abelino US Will call patient to follow-up and set OR date. I saw and examined this patient. I discussed the plan with the resident team including Dr. Cami Burrows MD Surgical Oncology [facility] Notes Date/Time Note Provider Source 2024-05-07 08:45:00 Images from the original note were not included. Venipuncture collection performed by clean technique on the right anticubitus. Total of 1 attempts were made. Slight pressure and a bandage/dressing were applied to the site(s). The patient experienced no complications. The following specimens were processed according to instructions and sent to [facility] laboratories per lab order on 05/07/2024: LT BLUE SST 1 RED LAV 1 PPT DK GREEN (LiHep) DK GREEN (SodH) KOLB DK BLUE (K2) DK BLUE (S) ACD Blood Culture NIPT/NTD [facility] 2024-04-27 14:38:22 Interestingly, she is quite responsive to mail if I recall correctly, but yes if I get a hold of her Ill update. [facility] 2024-04-27 09:33:29 We have made multiple attempts to call patient to scheduled her breast biopsy and have no luck in reaching her. Her voicemail is full and we are unable to leave her a message each time. She is not active on [employer] so unable to send message to her Please let us know if you reach patient and we will schedule her if she is willing Thank you. Anushka Turner Kt [facility] 2024-04-23 09:30:00 Images from the original note were not included. Venipuncture collection performed by clean technique on the right anticubitus. Total of 1 attempts were made. Slight pressure and a bandage/dressing were applied to the site(s). The patient experienced no complications. The following specimens were processed according to instructions and sent to [facility] laboratories per lab order on 04/23/2024: LT BLUE SST 1 RED LAV 1 PPT DK GREEN (LiHep) DK GREEN (SodH) KOLB DK BLUE (K2) DK BLUE (S) ACD [facility]24-10-07 11:45:19 Patient notified that order was placed. Kendy Nathan RNDetwiler [facility] [id number] 11:26:51 Addended by: MAXIMILIANO BURROWS MD on: 04/05/2024 11:26 AM Modules accepted: Orders [facility] HospitalLkcjai5683-54-15 12:05:46 Elias Mansfield is a 78 year old female Pt came into clinic requesting for provider to place an order for a diagnostic mammogram. Radiology is stating because the pt has had breast cancer she needs a special order before she can be scheduled for the mammogram. Pt needs the mammogram done here in [place] because she does not have transportation to [place]. Pt is also asking that a letter be sent to her address on file to let her know the order was placed and if the order can be mailed to her as well. Please advise. Leonarad PerezFormerly [facility] [id number] 14:30:29 Patient notified topical lidocaine can be purchased OTC. Patient verbalized understanding. Kendy Nathan [place] 83354-08-28 13:32:10 Please let patient know that it is over the counter. [facility] [id number] 00:00:00 Sandeep Suárez [facility]2024-08-21 15:07:32 Images from the original note were not included. Per last office visit note. Will route to provider for RX Kendy Nathan [place] [id number] 09:43:08 Pt came into clinic due to rx not sent for chest wall pain. Pt would like the rx to be sent to [facility]. Please advise Marvin TravisMichael V[place] [id number] 00:00:00 Sandeep Suárez [facility]2024-04-08 00:00:00 Sandeep HendrixJeffery [place] [id number] 13:32:[address] Burrows, states patient to be scheduled to see Katie Granger Jul 29. Email sent to schedulers to assist patient with scheduling appointment. Patient contacted and notified that someone would be reaching out to her to get her scheduled with Katie Granger. [facility] Kendy Nathan [place] [id number] 13:00:11 Spoke with patient, patient states she was instructed to follow up 2 weeks post surgery which would be tomorrow, but her follow up is not scheduled until 08/18/22. This is the first available appointment for Dr Burrows. Patient is concerned about her drain being in that long. Patient denies any s/s of infection or issues with drain at this time. Will route to provider for recommendations. [facility]2024-01-25 12:29:46 This patients 2week post op is scheduled further out than 2weeks. This provider is not in office sooner. Please advise and discuss with patient as she is concerned about her drain. [facility]en [facility] SystemkathyaDetwiler Memorial HospitalTcjfws5234-18-09 11:23:30 Problem: Falls, Risk of Goal: Absence of falls Outcome: Adequate for discharge Problem: Pain Goal: Control of pain at or below patient's documented comfort goal Outcome: Adequate for discharge Goal: Reduction in pain sensation Outcome: Adequate for discharge Problem: Skin integrity Impaired (Risk or Actual) Goal: Prevention of new skin breakdown Outcome: Adequate for discharge Problem: Discharge Planning Goal: Adequate for discharge Outcome: Adequate for discharge Problem: Bleeding, Risk of Goal: Absence of active bleeding Outcome: Adequate for discharge [facility] Ysabel Shaikh [facility]ly [facility] CenterNcgqms9172-46-82 22:40:39 Problem: Falls, Risk of Goal: Absence of falls Outcome: Progressing as expected Problem: Pain Goal: Control of pain at or below patient's documented comfort goal Outcome: Progressing as expected Goal: Reduction in pain sensation Outcome: Progressing as expected Problem: Skin integrity Impaired (Risk or Actual) Goal: Prevention of new skin breakdown Outcome: Progressing as expected Problem: Discharge Planning Goal: Adequate for discharge Outcome: Progressing as expected Problem: Bleeding, Risk of Goal: Absence of active bleeding Outcome: Progressing as expected [facility] Janet Snell [facility] [id number] 20:12:52 Problem: Falls, Risk of Goal: Absence of falls Outcome: Progressing as expected Problem: Pain Goal: Control of pain at or below patient's documented comfort goal Outcome: Progressing as expected Goal: Reduction in pain sensation Outcome: Progressing as expected Problem: Skin integrity Impaired (Risk or Actual) Goal: Prevention of new skin breakdown Outcome: Progressing as expected Problem: Discharge Planning Goal: Adequate for discharge Outcome: Progressing as expected Problem: Bleeding, Risk of Goal: Absence of active bleeding Outcome: Progressing as expected [facility]2024-01-12 10:56:00 Date of Surgery: July 11, 2023 Procedure: Left Simple Mastectomy, Left Ramsey Lymph Node Biopsy, Intraoperative Fluoroscopy Surgeon: Maximiliano Burrows MD. Assistants: Corrina Lazo MD. Pre-operative Diagnosis: Left breast cancer Post-operative Diagnosis: Same Anesthesia: General Anesthesia Findings in brief: Two radioactive lymph nodes Fluids: 1000cc crystalloid EBL: 50cc Indications: 78-year-old female who presents with a palpable left breast lesion now found to have a 13mm IDC. G3. ER+. MN-. HER2+. T1c. IA. Upper outer quadrant. Procedure in detail: The patient was brought into the operating room. In accordance with WHO guidelines, a preanesthetic checklist was performed. The patient was transferred to the operating room table. All pressure points were padded. Pneumatic compression boots were placed. General anesthesia was induced. A pre-injection timeout was performed. Radioactive nucleotide was injected into the affected breast by the nuclear medicine team. The patient's left breast and axilla were then prepped and draped in the standard, sterile fashion. A pre-incision timeout was performed during which receipt of appropriately timed DVT prophylaxis and antibiotics was discussed. A gamma probe was used to confirm radioactivity in the axilla. A transverse incision was then made just below the hair bearing area. This was carried through the subcutaneous tissue until the clavipectoral fascia was encountered. The facia was incised and the gamma probe was used to identify radioactive abelino packets. The node with the highest radioactivity was removed. All nodes with an in-vivo count of at least 10% of the highest ex-vivo count of that node were excised. The nodes were dissected from the surrounding fibrofatty tissue. Clips were used to ligate lymphatic limbs and any small vessels present. A total of two sentinel lymph nodes were excised. Baseline radioactivity was then confirmed within the axilla. The wound was then irrigated and hemostasis achieved. The wound was then closed in layers using 3-0 Vicryl and 4-0 Moncryl We then turned our attention to the breast. An elliptical incision was made to incorporate the anticipated site of tumor as well as the nipple areolar complex. Skin flaps of the appropriate thickness were then raised inferiorly and superiorly. The breast was then dissected in standard fashion using the anatomical boundaries of the clavicle superiorly, sternal border medially, the latissimus dorsi laterally, and towards the rectus abdominus inferiorly. The breast was then dissected off the pectoralis fascia, including the fascia enbloc. The specimen was marked in routine fashion. An additional anterior margin was taken. The wound was irrigated, hemostasis was achieved. Fluoroscopy was used to confirm removal of the prior clipped lesion. The surgical beds were irrigated and hemostasis achieved. One surgical drain was then placed in the resection bed and secured in place. The wounds were then closed in layers using 3-0 Vicryl, 2-0 Prolene and 4-0 Moncryl. They were then washed and dressed in sterile fashion with steri-strips. At the conclusion of the case, all lap, needle, and instrument counts were correct. The patient was awoken from anesthesia and taken to the PACU for ongoing care. She was in stable condition. Specimens: Left breast mastectomy, Ramsey Lymph Nodex2, Anterior margin Complications: None I was present and actively participated in all critical portions of this case. Maximiliano Burrows MD Surgical Oncology Mastectomy, simple [id number] Ramsey lymph node biopsy [id number] Intraoperative fluoroscopy [id number] T [facility] - [id number] 13:41:29 A user error has taken place: encounter opened in error, closed for administrative reasons. [facility] Tara GaminoFormerly [facility] [id number] 08:00:00 Images from the original note were not included. Venipuncture collection performed by clean technique on the left anticubitus. Total of 1 attempts were made. Slight pressure and a bandage/dressing were applied to the site(s). The patient experienced no complications. The following specimens were processed according to instructions and sent to [facility] laboratories per lab order on 07/09/2023: LT BLUE SST 1 LT Green RED LAV 1 PPT DK GREEN (LiHep) DK GREEN (SodH) KOLB DK BLUE (K2) DK BLUE (S) ACD Blood Culture NIPT/NTD Spoke with Vance who said pt has no history of TS. Pt needed one pulled today. RodríguezDetwiler Memorial HospitalVfwhwr8746-76-04 09:49:44 Called patient and reminded to come in for labs. Said she will come in tomorrow morning, has already eaten today. Almonte RNDetwiler Memorial HospitalVzdsmw2954-37-42 09:44:11 Images from the original note were not included. Your procedure is at [facility] on 07/11/23. The address is [address] [place] [address], [id number]. [facility] nursing staff will call you the workday before your procedure to let you know what time to arrive.On the day of your procedure, please go inside that door and check in at the desk. Please note: You may not travel home alone and that includes in a taxi or by bus. We must speak to your Responsible Adult (who will be picking you up) the morning of your procedure, before the start of your procedure. This person must be an adult over the age of 18 years of age. Do not eat any solid food after midnight the night before surgery. You may have sips of clear liquids such as water, gatorade, and sprite up until two hours before your scheduled procedure. You may take your medications with a sip of water as directed by physician. Anticoagulants will be per physician guidance. Medication Note(s)/Instructions:n/a Pending screening, we may test for COVID. If a patient tests positive, their cases are cancelled and/or rescheduled. COVID SCREENING NOTE: Denies COVID symptoms, no testing required. Additional requests, questions, concerns:Patient will come in week of surgery to complete labs. Patient verbalized understanding of pre-op instructions and voiced no further questions at this time. [facility]2023-12-18 11:30:00 Addended by: MAXIMILIANO BURROWS MD on: 06/19/2023 02:39 PM Modules accepted: Orders [facility]
[2024-06-01 04:33] LABS: PT Prothrombin Time 13.6 SECONDS (9.4-12.5); Protime INR 1.22
[2024-06-01 04:35] LABS: Absolute Basophils 0.1 K/uL (0-0.5); Absolute Eosinophils 0.2 K/uL (0-0.5); Absolute Lymphocytes (CBC) 1.5 K/uL (0.7-4.9); Absolute Monocytes 1.5 K/uL (0.1-1.3); Absolute Neutrophil 5.1 K/uL (1.8-8.0); Basophils % 0.8 % (0-1.3); Eosinophils % 2.5 % (0-4.4); Hematocrit 38.6 % (36.0-45.0); Hemoglobin 12.7 g/dL (12.0-15.0); Lymphocytes % 17.8 % (15.3-44.8); MCH 30.3 pg (27.0-35.0); MCHC 32.9 g/dL (32.0-36.0); MCV 92.3 fL (80-100); MPV 7.5 fL (7.6-11.3); Monocytes % 17.5 % (3.3-12.3); Neutrophils % 61.4 % (41.7-73.7); Platelets 599 thou/uL (152-406); RBC Red Blood Cell Count 4.18 M/uL (3.86-4.86); Red Cell Distribution Width 14.5 % (12.1-15.2)
[2024-06-01 04:47] LABS: ALT/SGPT 21 U/L (13-56); AST/SGOT 19 U/L (15-37); Albumin 2.5 g/dL (3.4-5.0); Albumin/Globulin Ratio 0.5 (1.1-1.8); Alkaline Phosphatase 91 U/L (45-117); Anion Gap 9.5 mEq/L (5.0-15.0); BUN Blood Urea Nitrogen 8 mg/dL (7-18); Bicarbonate 30 mEq/L (21-32); Bilirubin Total 0.3 mg/dL (0.2-1.0); Globulin 4.8 g/dL (2.3-3.5); Glomerular Filtration Rate 95 ml/min (=/>90); Glucose Level 129 mg/dL (74-106); Lipase 70 U/L (13-75); Magnesium 2.3 mg/dL (1.6-2.4); NT PRO-BNP 34 pg/mL (<450); Potassium 3.5 mEq/L (3.5-5.1); Protein, Total 7.3 g/dL (6.4-8.2); Sodium Level 136 mEq/L (136-145); Troponin High Sensitivity 5.2 pg/mL (<58.9)
[2024-06-01 04:51] LABS: Bilirubin Direct < 0.2 mg/dL (0-0.2); Bilirubin Indirect, Calculated 0.1 mg/dL (0.2-0.8)
[2024-06-01] MEDS ORDERED: IPRATROPIUM BROM 0.5MG/2.5ML ONE (06:17)
[2024-06-01] MEDS ORDERED: ALBUTEROL 2.5 MG/3 ML NEB SOL ONE (06:17)
[2024-06-01] MEDS ORDERED: METHYLPREDNISOLONE 125 MG INJ ONE (06:18)
--- NOTE | 2024-06-01 07:23 | RAD REPORT ---
EXAMINATION: CTA CHEST PE CLINICAL INDICATION: Female, 79 years old. Chest pain;Dyspnea TECHNIQUE: This examination was performed according to an angiographic protocol with 3D post-processi ng. This involves 3D reconstructions, MIPs, volume rendered images and/or shaded surface rendering. One or more of the following dose reduction techniques were used: Automated exposure control, adjustm ent of the mA and/or kV according to patient size, and/or iterative reconstruction. Unless otherwise specified, incidental findings do not require dedicated imaging follow-up. [id number]. COMPARISON: 11/07/2023 FINDINGS: LOWER NECK: 9 mm low-density left thyroid nodule. This does not require follow-up. LUNGS AND AIRWAYS: At least moderate centrilobular and paraseptal emphysema. Right upper lobe pulmona ry nodules unchanged. This is a solid nodule measuring 7 mm. A nodule in the left upper lobe has slightly increased in size measuring 5 mm, previously 5 mm but overall more conspicuous. Other scatte red small pulmonary nodules are present. PLEURA: No pleural effusion. No pneumothorax. Hemidiaphragms are normally positioned. MEDIASTINUM AND LYMPH NODES: Similar hilar lymphadenopathy, right greater than left. Several very hil ar lymph nodes are calcified. THORACIC AORTA: Normal caliber and configuration. Severe bilateral common carotid artery stenoses not ed. PULMONARY ARTERIES: No evidence of pulmonary embolism. HEART: Normal heart size. No pericardial effusion. Coronary arterial calcifications are present. OSSEOUS STRUCTURES AND CHEST WALL: Intact. UPPER ABDOMEN: Right adrenal nodule previously characterized as a benign adenoma. IMPRESSION: 1. Negative for pulmonary embolism. 2. Moderate to advanced emphysema. No evidence of a superimposed pneumonia. 3. Partially imaged severe bilateral common carotid artery stenoses. Could consider neck CTA or carot id ultrasound as indicated. 4. Pulmonary nodules which are not significantly changed going back to 08/01/2022.
--- NOTE | 2024-06-01 08:05 | RAD REPORT ---
EXAMINATION: CT ABDOMEN AND PELVIS WITH CONTRAST CLINICAL INDICATION: Female, 79 years old.ABD PAIN TECHNIQUE: CT abdomen and pelvis was performed, after the administration of IV contrast, [facility]. Axial, sagittal and coronal reconstructions were obtained. One or more of the following dose reduction techniques were used: Automated exposure control, adjustment of the mA and/o r kV according to patient size, and/or iterative reconstruction. Unless otherwise specified, incidental findings do not require dedicated imaging follow-up. [id number]. COMPARISON: No prior exam. FINDINGS: LOWER CHEST: Mild right lower lobe bronchiectasis. Emphysema. LIVER: Normal in size and contour. No focal lesion. GALLBLADDER/BILE DUCT: Cholelithiasis. Probable adenomyomatosis. The gallbladder wall enhances. No pe richolecystic inflammatory changes.? PANCREAS: No significant abnormality. SPLEEN: Normal size. No focal lesion. ADRENALS: Unchanged right adrenal nodule since at least 2020 which is benign.. KIDNEYS AND URETERS: Normal size and contour. No hydronephrosis. GASTROINTESTINAL TRACT: Stomach is non-dilated. Small bowel has normal course and caliber. No colonic wall thickening or pericolonic inflammatory changes. Normal appendix. PERITONEUM: No ascites. LYMPH NODES: No lymphadenopathy. ABDOMINAL AORTA AND OTHER VESSELS: Abdominal aortic atherosclerosis. Severe stenosis of the proximal SMA secondary to predominantly noncalcified plaque. At least mild stenosis is present at the celiac trunk. URINARY BLADDER: Normal contour. REPRODUCTIVE ORGANS: Probable uterine fibroids. MUSCULOSKELETAL: Grade 1 anterolisthesis of L5 on S1. ADDITIONAL FINDINGS: None. IMPRESSION: 1. Cholelithiasis with enhancing gallbladder wall but no pericholecystic inflammatory changes. Consid er correlation with right upper quadrant ultrasound if there is concern for acute cholecystitis. 2. Severe stenosis at the proximal SMA secondary to primarily noncalcified plaque.
--- NOTE | 2024-06-01 10:39 | RAD REPORT ---
Abdomen Exam Limited: 06/01/2024 9:45 AM CLINICAL HISTORY: cholelithiasis;Abd pain STUDY: Limited right upper quadrant ultrasound of abdomen. COMPARISON: 06/01/2024 CT FINDINGS: Liver: No significant abnormality. Bile ducts: No intrahepatic or extrahepatic biliary dilatation. Common bile duct measures 1 mm. Gallbladder: Polypoid mass along the nondependent aspect of the gallbladder fundus measuring 2 x 1.2 cm. No gallbladder wall thickening. No sonographic Pinto sign. No pericholecystic fluid. IMPRESSION: No evidence of acute cholecystitis. Polypoid mass along the nondependent wall of the gallbladder could represent either a polyp or adhere nt sludge. Surgical referral is recommended given the risk of malignancy for gallbladder polyps at this size.
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
[2024-06-01 14:00] VITALS: TEMP 98.6
[2024-06-01 14:17] VITALS: BP 125/56; O2SAT 94
== END 2024-06-01 13:20 | disposition home or self-care (01) ==
LOC: ER 03:38
DX: K82.9 Disease of gallbladder, unspecified (principal)
CPT/HCPCS: 85025; 80048; 36415; 83735; 85610; 80076; 83605; 84484; 83690; 83880; 71275; 74177; 76705; 96374; 99285; Q9967; J7613; J7644; J2919

== ENCOUNTER 2024-08-16 07:41 | Day surgery (SDC) | payer OTHER ==
[2024-08-13 15:37] LABS: Absolute Basophils 0.1 K/uL (0-0.5); Absolute Eosinophils 0.1 K/uL (0-0.5); Absolute Lymphocytes (CBC) 2.1 K/uL (0.7-4.9); Absolute Neutrophil 5.6 K/uL (1.8-8.0); Basophils % 0.8 % (0-1.3); Eosinophils % 1.3 % (0-4.4); Hematocrit 40.6 % (36.0-45.0); Hemoglobin 13.4 g/dL (12.0-15.0); Lymphocytes % 23.2 % (15.3-44.8); MCH 31.2 pg (27.0-35.0); MCV 94.6 fL (80-100); MPV 7.5 fL (7.6-11.3); Monocytes % 11.5 % (3.3-12.3); Neutrophils % 63.2 % (41.7-73.7); Platelets 392 thou/uL (152-406); RBC Red Blood Cell Count 4.29 M/uL (3.86-4.86); Red Cell Distribution Width 17.1 % (12.1-15.2)
--- NOTE | 2024-08-13 15:45 | RAD REPORT ---
Procedure: Chest Pa And Lat (2 Views) HISTORY: Preop for bladder surgery COMPARISON: May 2024 FINDINGS: Development of a mild right lower lobe infiltrate. Lungs are moderately to markedly hyperaerated consistent with COPD The left lung appears clear of acute infiltrate. No significant pleural effusion noted. Left pleural thickening. The heart is normal size. IMPRESSION: Development of a mild right lower lobe infiltrate probably pneumonia
[2024-08-13 15:53] LABS: ALT/SGPT 35 U/L (13-56); AST/SGOT 24 U/L (15-37); Albumin 3.2 g/dL (3.4-5.0); Albumin/Globulin Ratio 0.7 (1.1-1.8); Alkaline Phosphatase 112 U/L (45-117); Anion Gap 7.7 mEq/L (5.0-15.0); BUN Blood Urea Nitrogen 14 mg/dL (7-18); Bicarbonate 31 mEq/L (21-32); Bilirubin Direct < 0.2 mg/dL (0-0.2); Bilirubin Indirect, Calculated 0.1 mg/dL (0.2-0.8); Bilirubin Total 0.3 mg/dL (0.2-1.0); Globulin 4.8 g/dL (2.3-3.5); Glomerular Filtration Rate 94 ml/min (=/>90); Glucose Level 83 mg/dL (74-106); Lipase 52 U/L (13-75); Potassium 3.7 mEq/L (3.5-5.1); Sodium Level 138 mEq/L (136-145)
[2024-08-16] MEDS ORDERED: KETOROLAC 30 MG/ML INJ ONE (08:06)
[2024-08-16] MEDS ORDERED: propofoL 200 MG/20 ML VIAL IV ONE (08:06)
[2024-08-16] MEDS ORDERED: FENTANYL CITR 100 MCG/2 ML ONE (08:06)
[2024-08-16] MEDS ORDERED: ROCURONIUM 50 MG/5 ML VIAL IV ONE (08:06)
[2024-08-16] MEDS ORDERED: LIDOCAINE 1% MPF 5 ML VIAL ONE (08:06)
[2024-08-16] MEDS ORDERED: MIDAZOLAM HCL 2 MG/2 ML INJ ONE (08:06)
[2024-08-16] MEDS ORDERED: ONDANSETRON 4 MG/2 ML VIAL ONE (08:06)
[2024-08-16] MEDS: CEFOXITIN SODIUM 1 GM/VIAL ONE (08:07)
[2024-08-16] MEDS: Ringers Lactate 1,000 ML IV ONE (08:07)
--- NOTE | 2024-08-16 08:16 | RAD REPORT ---
EXAMINATION: TWO VIEW CHEST XR CLINICAL INDICATION: Female, 79 years old. [facility]-OP CXR SDS ROOM 2 TECHNIQUE: 2 view radiographs of the chest were performed. COMPARISON: 08/13/2024 FINDINGS: The lungs are hyperexpanded suggesting COPD. Stable right basilar opacity, could represent unresolved pneumonia or atelectasis. No pneumothorax or sizable effusion. The heart is normal in size. Mediastinal contours are unremarkable. IMPRESSION: Stable right basilar opacity as above.
[2024-08-16] MEDS ORDERED: NS 0.9% VIAL 0 ML ONE (10:00)
[2024-08-16] MEDS ORDERED: EPHEDRINE SULF 50 MG/ML VIAL ONE (10:04)
[2024-08-16] MEDS ORDERED: GLYCOPYRROLATE 0.2 MG/ML SYR ONE (10:41)
[2024-08-16] MEDS ORDERED: NEOSTIGMINE 1 MG/ML -10 ML VIAL ONE (10:41)
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
[2024-08-16 11:26] VITALS: O2SAT 98
[2024-08-16] MEDS: TRAMADOL 37.5mg/APAP 325mg PER TAB ONE (11:50)
[2024-08-16 14:18] VITALS: BP 143/41
[2024-08-16 14:48] VITALS: TEMP 87.2
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
== END 2024-08-16 12:28 | disposition home or self-care (01) ==
LOC: OR 07:41
PROVIDERS: ATTEND Surgery
PROC: 0DNW4ZZ Release Peritoneum, Percutaneous Endoscopic Approach (ICD-10-PCS; 2024-08-16)
PROC: 0FT44ZZ Resection of Gallbladder, Percutaneous Endoscopic Approach (ICD-10-PCS; principal; 2024-08-16 09:15)
DX: K81.1 Chronic cholecystitis (principal); K66.0 Peritoneal adhesions (postprocedural) (postinfection)
CPT/HCPCS: 47562; 49329; 85025; 80048; 36415; 80076; 83690; 71046 ×2; J2704; J2710; J2003; J2250; J3010; J0694; J2405; J7120; 88304; A4216